=== PATIENT | male | born 1960 | race Caucasian/White ===

== ENCOUNTER 2023-05-29 09:15 | Outpatient (AMB) | payer OTHER, SELFPAY ==
--- NOTE | 2023-05-29 09:58 | AM.OFFWIN_ITS ---
<Statement entered by Xavier Novak MD - 05/30/23 14:35> This document is duplicate Intake Vital Signs 3 05/29/23 09:59 Height 5 ft 10 in Weight 277 lb BMI 39.7 BP 150/60 H Blood Pressure Location Lt brachial Position Sitting Pulse 67 Pulse Source Pulse Oximeter Temp 98.4 F Temp Source Oral Pulse Oximetry (%) 97 Oxygen Delivery Method Room Air Intake Visit Reasons: EP, Blister on great toe Intake Note: Pt is here today c/o Rt grt toe blister and Rt lower leg red x1week Patient Tobacco Use Status: Former Tobacco user Allergies atorvastatin [From LIPITOR] Adverse Reaction (Unknown, Unverified 05/29/23 09:58) MUSCLE ACHES PFSH Social History Patient Tobacco Use Status: Former Tobacco user Physical Exam Vital Signs: Last Vital Signs Temp 98.4 F 05/29/23 09:59 Pulse 67 05/29/23 09:59 BP 150/60 H 05/29/23 09:59 Pulse Ox 97 05/29/23 09:59 Oxygen Delivery Method Room Air 05/29/23 09:59 BMI result Body Mass Index 39.7 Assessment & Plan Assessment & Plan Medications: New doxycycline hyclate 100 mg PO BID 14 tabs 0RF Coding Level of Care Code Est Pt Level 1 (24735)
[2023-05-29 09:59] VITALS: BP 150/60; PULSE 67; TEMP 36.9; O2SAT 97; BMI 39.7
--- NOTE | 2023-05-29 10:20 | MHC.OFFWIV ---
Intake Vital Signs 05/29/23 09:59 Height 5 ft 10 in Weight 277 lb BMI 39.7 BP 150/60 H Blood Pressure Location Lt brachial Position Sitting Pulse 67 Pulse Source Pulse Oximeter Temp 98.4 F Temp Source Oral Pulse Oximetry (%) 97 Oxygen Delivery Method Room Air Intake Visit Reasons: EP, Blister on great toe Patient Tobacco Use Status: Former Tobacco user Allergies atorvastatin [From LIPITOR] Adverse Reaction (Unknown, Unverified 05/29/23 09:58) MUSCLE ACHES HPI HPI Comments History of Present Illness Details This is a 62 year past medical history of insulin-dependent diabetes, atrial fibrillation currently anticoagulated, obstructive sleep apnea, hypertension, hyperlipidemia and peripheral neuropathy presenting from home for evaluation of a blister on his right great toe. Patient states that he works for the [employer] in [place], [place] and has been forced to wear steel-toed boots over the past 10 days. Approximately 8 days ago the patient noticed a blood blister on his RGT and now new redness on his right leg. Patient denies having any fevers, chills, discharge from the lesion or episoes of hyperglycemia. [facility] Social History Patient Tobacco Use Status: Former Tobacco user Review of Systems Const Denies chills, Denies fatigue and Denies fever(s) Skin/Breast Reports system reviewed and no additional complaints, except as documented, Reports non-healing lesions, Reports erythema and Reports wounds Neuro Reports no additional complaints and Reports other (peripheral neuropathy - chronic) Psych Reports no additional complaints Endo Denies fatigue Physical Exam Vital Signs: Last Vital Signs Temp 98.4 F 05/29/23 09:59 Pulse 67 05/29/23 09:59 BP 150/60 H 05/29/23 09:59 Pulse Ox 97 05/29/23 09:59 Oxygen Delivery Method Room Air 05/29/23 09:59 BMI result Body Mass Index 39.7 Patient is afebrile. Const General: cooperative, healthy appearing, comfortable and no acute distress; No ill appearing Nutritional Appearance: overweight Orientation/consciousness: patient oriented x3 Limitations: no limitations Skin Other: there is a 2cm round hypopigmented blister on the lateral RGT with 1cm surrounding erythema that is warm to touch; no evidence of a retained foreign body. Additionally, there is macular erythema measuring 7cm x 9cm that is warm to touch on the distal aspect of the medial RLE. Neuro General: patient oriented x3 Extrem Other: pain to palpation surrounding the aforementioned lesion on the medial RGT; patient ambulating independently Psych Appearance: grossly normal Mental Status: mental status grossly normal Insight: Good insight present (Psych) Judgement: Good judgement present (Psych) Assessment & Plan Assessment & Plan (1) Blister of foot with infection: Code(s): S90.829A - Blister (nonthermal), unspecified foot, initial encounter; L08.9 - Local infection of the skin and subcutaneous tissue, unspecified Plan: Antibiotic therapy will be prescribed and the patient is urged to check his blood sugar at least 3 times daily. The patient states he has follow-up scheduled with his orthopedic surgeon on WednesdayMay 31 for further evaluation of this lesion on his foot. Medications: New doxycycline hyclate 100 mg PO BID 14 tabs 0RF Coding Level of Care Code New Pt Level 4 (01283) Diagnoses Blister of foot with infection S90.829A; L08.9 Time Spent (min) 25
== END 2023-05-29 10:12 | disposition home or self-care (01) ==
PROVIDERS: PCP Internal Medicine; Visit Provider Physician Assistant
DX: S90.829A Blister (nonthermal), unspecified foot, initial encounter (principal); L08.9 Local infection of the skin and subcutaneous tissue, unspecified
CPT/HCPCS: 99051; 99204

== ENCOUNTER 2023-07-05 14:31 | Outpatient (REF) | payer OTHER, SELFPAY ==
--- NOTE | ~2023-07-05 | US_ITS ---
EXAMINATION: US EXTRACRANIAL CAROTID DUPLEX, BILATERAL CLINICAL INFORMATION: Occlusion and stenosis of unspecified carotid artery. Diabetes, tobacco, hypertension, hyperlipidemia. COMPARISON: None available. TECHNIQUE: Real-time ultrasound and Doppler techniques (integrating B-mode 2-D vascular images, Doppler spectral analysis and color-flow Doppler imaging) were utilized to interrogate the extracranial carotid arteries, the vertebral arteries and proximal subclavian arteries bilaterally. The degree of stenosis is determined by criteria similar to NASCET. FINDINGS: Right Side: 1. There is no atherosclerotic plaque seen in the bifurcation/proximal ICA region. 2. The common carotid artery PSV proximally is 75 cm/s and distally 62 cm/s. 3. The proximal internal carotid artery velocities are 67 cm/s systolic and 15 cm/s diastolic. 4. The proximal external carotid artery PSV is 99 cm/s. 5. The vertebral artery shows antegrade flow. 6. The subclavian artery waveforms are normal. Left Side: 1. There is no atherosclerotic plaque seen in the bifurcation/proximal ICA region. 2. The common carotid artery PSV proximally is 98 cm/s and distally 90 cm/s. 3. The proximal internal carotid artery velocities are 65 cm/s systolic and 14 cm/s diastolic. 4. The proximal external carotid artery PSV is 91 cm/s. 5. The vertebral artery shows antegrade flow. 6. The subclavian artery waveforms are normal. US/US carotid duplex BI IMPRESSION: 1. RIGHT: Normal right internal carotid artery without atherosclerotic plaque or hemodynamically significant stenosis. 2. LEFT: Normal left internal carotid artery without atherosclerotic plaque or hemodynamically significant stenosis.
== END 2023-07-05 14:32 | disposition home or self-care (01) ==
LOC: HO.US 14:31
PROVIDERS: PCP Internal Medicine; Visit Provider Psychiatry & Neurology Neurology
DX: I65.29 Occlusion and stenosis of unspecified carotid artery (principal); I10 Essential (primary) hypertension; E78.5 Hyperlipidemia, unspecified; E11.9 Type 2 diabetes mellitus without complications
CPT/HCPCS: 93880

== ENCOUNTER 2023-07-27 08:52 | Outpatient (AMB) | payer OTHER, SELFPAY ==
--- NOTE | 2023-07-27 09:31 | AM.OFFWIN_ITS ---
Intake Vital Signs 07/27/23 09:32 Height 5 ft 10 in Weight 271 lb 4 oz BMI 38.9 BP 140/60 H Blood Pressure Location Rt brachial Position Sitting Pulse 60 Pulse Source Pulse Oximeter Temp 97.4 F Temp Source Temporal Artery Scan Pulse Oximetry (%) 95 Oxygen Delivery Method Room Air Intake Visit Reasons: EP cough upset stomach [id number] Intake Note: Pt is here c/o bad cough, upset stomach, and feeling sick since last week. Pt states he has taken two COVID test and they were negative. Pt is requesting letter for work for 07/26/23 and 07/27/23 pending test results. Patient Tobacco Use Status: Former Tobacco user Allergies atorvastatin [From LIPITOR] Adverse Reaction (Unknown, Unverified 07/27/23 09:31) MUSCLE ACHES Do you need a note to return to daycare/school/sports/work: No HPI EP cough upset stomach [id number] HPI Details This is a 62-year-old male patient who presents today with a 6 day history of cough, wheezing, and GI upset. He states he has had several instances of diarrhea, however no vomiting. Denies any fever or chills. Denies shortness of breath. 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 This exacerbated symptoms. He has been home from work yesterday and today and is starting to feel somewhat improved. COVID test at home have been negative, however he does request some viral testing if possible. Tried some Robitussin at home with moderate benefit. Also has an albuterol inhaler at home which she uses every so often. [facility] Social History Patient Tobacco Use Status: Former Tobacco user Review of Systems Const All systems reviewed & are unremarkable except as noted in HPI and below Physical Exam Vital Signs: Last Vital Signs Temp 97.4 F 07/27/23 09:32 Pulse 60 07/27/23 09:32 BP 140/60 H 07/27/23 09:32 Pulse Ox 95 07/27/23 09:32 Oxygen Delivery Method Room Air 07/27/23 09:32 BMI result Body Mass Index 38.9 Const General: cooperative, comfortable and no acute distress HEENT Head: Yes normal to inspection Ears: hearing grossly normal bilaterally General nose exam: Normal external nose present and Normal nasal mucous membranes and turbinates present Throat: Yes posterior oropharynx normal Resp Effort & Inspection: normal respiratory effort, able to speak in complete sentences and Actively coughing Quality: dry Auscultation: wheezes (otherwise clear) scattered wheezes Cardio Jugular venous distension: no JVD Palpation: normal PMI Rate: regular rate Rhythm: regular rhythm GI Inspection: Yes normal to inspection Palpation (GI): Soft to palpation (nontender) Skin General skin exam: no rashes or lesions noted Extrem General: Yes capillary refill normal and Yes no clubbing, cyanosis or edema Psych Appearance: grossly normal Mental Status: mental status grossly normal Speech and movement: Normal speech and movement present Assessment & Plan Assessment & Plan (1) Upper respiratory infection: Code(s): J06.9 - Acute upper respiratory infection, unspecified Qualifiers: URI type: unspecified viral URI Qualified Code(s): J06.9 - Acute upper respiratory infection, unspecified Plan: Will start patient on a short course of prednisone, and also benzonatate for his cough. COVID/flu/ RSV viral swab obtained. Patient aware he will be notified with results once these are available. He states that GI symptoms are improving, and declines any medication to treat his diarrhea. Advised [id number] Imodium as needed. Work note provided. Advised rest, increase hydration, Tylenol for any ongoing discomforts. if he does not improve with time and treatment, he should return to the clinic for further evaluation. He verbalizes understanding and agrees to plan. Orders: Orders SARS-CoV2/FLU/RSV Today J06.9 - Acute upper respiratory infection, unspecified Medications: New prednisone 20 mg PO BID 3 days 6 tabs 0RF J06.9 - Acute upper respiratory infection, unspecified benzonatate 100 mg PO BID 7 days PRN 14 caps 0RF cough R05.9 - Cough, unspecified Coding Level of Care Code Est Pt Level 3 (33375) Diagnoses Viral upper respiratory tract infection J06.9 URI type: unspecified viral URI
[2023-07-27 09:32] VITALS: BP 140/60; PULSE 60; TEMP 36.3; O2SAT 95; BMI 38.9
== END 2023-07-27 10:18 | disposition home or self-care (01) ==
PROVIDERS: PCP Internal Medicine; Visit Provider Nurse Practitioner Family
DX: J06.9 Acute upper respiratory infection, unspecified (principal)
CPT/HCPCS: 99213

== ENCOUNTER 2023-07-27 09:56 | Outpatient (REF) | payer OTHER, SELFPAY ==
[2023-07-27 14:37] LABS: Influenza A PCR NEGATIVE (Negative); Influenza B PCR NEGATIVE (Negative); Resp Syncy Virus RNA Qual PCR POSITIVE (Negative); SARS COV2 PCR INHOUSE NEGATIVE (Negative)
== END 2023-07-27 09:57 | disposition home or self-care (01) ==
LOC: HO.LAB 09:56
PROVIDERS: Visit Provider Nurse Practitioner Family
DX: Z11.52 Encounter for screening for COVID-19 (principal); J06.9 Acute upper respiratory infection, unspecified
CPT/HCPCS: 0241U

== ENCOUNTER 2024-03-31 09:07 | Outpatient (AMB) | payer OTHER, SELFPAY ==
--- NOTE | 2024-03-31 09:30 | AM.OFFWIN_ITS ---
Intake Vital Signs 03/31/24 09:33 Height 5 ft 10 in Weight 268 lb BMI 38.4 BP 120/78 Blood Pressure Location Lt brachial Position Sitting Pulse 53 Pulse Source Pulse Oximeter Pulse Oximetry (%) 98 Oxygen Delivery Method Room Air Intake Visit Reasons: EP stomach problems Intake Note: Patient here for diarrhea that has been present for some time now. Patient Tobacco Use Status: Former Tobacco user Allergies atorvastatin [From LIPITOR] Adverse Reaction (Unknown, Unverified 03/31/24 09:3 4) MUSCLE ACHES Do you need a note to return to daycare/school/sports/work: Yes HPI HPI Comments History of Present Illness Details Patient is a 63-year-old male complaining watery diarrhea on and off for the last month. He said it started in the middle of February when he had COVID. Then his symptoms resolved but came back about 2 weeks ago, then went away 5 days ago and then came back yesterday. He states he had terrible watery diarrhea and did not get to the restroom in time on a couple of occasions. He denies any blood or black in his diarrhea. He denies any recent antibiotic use. He states no one at home has these symptoms. He denies any fevers, vomiting or nausea. He states he gets regular colonoscopies, every 5 years and denies a history of diverticulitis. He tells me he does not have any true pain in his stomach, it is more uncomfortableness and is constantly gurgling. Patient states he is able to eat and drink normally. COUNTS INCLUDE 234 BEDS AT THE [facility] Social History Patient Tobacco Use Status: Former Tobacco user Review of Systems Const All systems reviewed & are unremarkable except as noted in HPI and below Physical Exam Vital Signs: Last Vital Signs Pulse 53 03/31/24 09:33 BP 120/78 03/31/24 09:33 Pulse Ox 98 03/31/24 09:33 Oxygen Delivery Method Room Air 03/31/24 09:33 BMI result Body Mass Index 38.4 Const General: cooperative, healthy appearing, comfortable, no acute distress and well developed Orientation/consciousness: patient oriented x3 Limitations: no limitations HEENT Head: Yes normal to inspection Ears: hearing grossly normal bilaterally General nose exam: Normal external nose present Face and sinus: Yes normal facial exam Eyes General: appearance normal, both eyes and all related structures Neck Neck: Yes normal visual inspection and Yes full ROM Resp Effort & Inspection: normal respiratory effort and able to speak in complete sentences Auscultation: clear to auscultation bilaterally Cardio Rate: regular rate Rhythm: regular rhythm Heart sounds: normal S1 and S2 GI Inspection: Yes normal to inspection Palpation (GI): Soft to palpation and nontender Auscultation: Hyperactive bowel sounds present Skin General skin exam: no rashes or lesions noted Neuro General: patient oriented x3 Extrem General: Yes normal to inspection Assessment & Plan Assessment & Plan (1) Diarrhea: Code(s): R19.7 - Diarrhea, unspecified Qualifiers: Diarrhea type: unspecified type Qualified Code(s): R19.7 - Diarrhea, unspecified Plan: Vital signs are stable and patient is well-appearing, we will get GI PCR panel as he has been symptomatic for approximately 2 weeks. Recommended staying well hydrated, BRAT diet, gave red flag warning signs and when to seek emergent medical care. Plan See above Orders: Orders GI Panel Today R19.7 - Diarrhea, unspecified Coding Level of Care Code New Pt Level 4 (66228) Diagnoses Diarrhea, unspecified type R19.7 Diarrhea type: unspecified type
[2024-03-31 09:33] VITALS: BP 120/78; PULSE 53; O2SAT 98; BMI 38.4
== END 2024-03-31 10:26 | disposition home or self-care (01) ==
PROVIDERS: PCP Internal Medicine; Visit Provider Physician Assistant
DX: R19.7 Diarrhea, unspecified (principal)
CPT/HCPCS: 99204

== ENCOUNTER 2024-03-31 10:30 | Outpatient (REF) | payer OTHER, SELFPAY ==
[2024-03-31 15:07] LABS: Adenovirus F 40/41 Not Detected (Not Detect.); Astrovirus Not Detected (Not Detect.); Campylobacter Not Detected (Not Detect.); Cryptosporidium Not Detected (Not Detect.); Cyclospora cayetanensis Not Detected (Not Detect.); E. coli EAEC Not Detected (Not Detect.); E. coli EPEC Not Detected (Not Detect.); E. coli ETEC Not Detected (Not Detect.); E. coli STEC Not Detected (Not Detect.); Entamoeba histolytica Not Detected (Not Detect.); Giardia lamblia Not Detected (Not Detect.); Norovirus GI/GII Not Detected (Not Detect.); Plesiomonas shigelloides Not Detected (Not Detect.); Rotavirus A Not Detected (Not Detect.); Salmonella Not Detected (Not Detect.); Sapovirus Not Detected (Not Detect.); Shigella sp./EIEC Not Detected (Not Detect.); Vibrio Not Detected (Not Detect.); Vibrio Cholerae Not Detected (Not Detect.); Yersinia enterocolitica Not Detected (Not Detect.)
== END 2024-03-31 10:31 | disposition home or self-care (01) ==
LOC: HO.HMGCLNP 10:30
PROVIDERS: PCP Internal Medicine; Visit Provider Physician Assistant
DX: R19.7 Diarrhea, unspecified (principal)
CPT/HCPCS: 87507

== ENCOUNTER 2025-04-23 11:42 | Outpatient (AMB) | payer OTHER, SELFPAY ==
--- NOTE | 2025-04-23 12:21 | A.OFFVIS_ITS ---
Intake Visit Reasons: 1 yr F/U Allergies atorvastatin (From LIPITOR) Adverse Reaction (Unknown, Unverified 03/31/24 09:34) MUSCLE ACHES Medication List - Last Reconciled 04/23/25 by Cee Trujillo MD albuterol sulfate 90 mcg/actuation 2 puffs inhalation Q6H PRN amlodipine 10 mg PO DAILY apixaban (Eliquis) 5 mg PO BID carbidopa-levodopa 25-100 mg 1 tab PO TID PRN cholecalciferol (vitamin D3) 50 mcg PO DAILY CPAP (CPAP Machine/Device) As directed ferrous sulfate (Feosol) 325 mg PO DAILY flecainide 300 mg PO DAILY PRN glipizide 5 mg PO BID insulin glargine (Lantus U-100 Insulin) 100 units subcut BID labetalol 200 mg PO BID meclizine 25 mg PO BID PRN nebivolol 40 mg PO DAILY olmesartan 20 mg PO DAILY pantoprazole 40 mg PO DAILY semaglutide (Rybelsus) 14 mg PO DAILY simvastatin 20 mg PO DAILY HPI Comments Details: 64 years old man with diabetes, atrial fibrillation, diabetic neuropathy, and mild right hand tremor. He is presenting with a progression of tremor and evaluation of new symptoms including stiffness, swallowing difficulties, and balance issues. He reports an exacerbation of a resting tremor with possible psychogenic influence. Stiffness on the right side has increased in severity, interfering with daily tasks and mobility. Additionally, the patient mentions difficulties in swallowing pills and incidents of losing balance, including a recent fall without major injuries. The patient's diabetically induced peripheral neuropathy manifests as a deformity in his right toes, reported to be consistent and problematic over time. He recently underwent a heart valve replacement, resulting in an adjustment of his hypertension medication, but has not introduced new medications aside from this change. Previous use of Carbidopa-Levodopa was noted for tremor management, which the patient has not resumed. [facility] Medical History (Updated 04/23/25 @ 12:33 by Cee Trujillo MD) Diabetic neuropathy Cerebral microvascular disease Carotid stenosis Social History Patient Tobacco Use Status: Former Tobacco user Review of Systems Const Details: - Neurological: Reports tremor, right-sided stiffness, and balance issues. Denies other neurological symptoms. - Endocrine: Reports diabetes mellitus type 2, with ongoing management. - Musculoskeletal: Reports deformity of right toes due to neuropathy. - Swallowing: Reports difficulty swallowing pills. - Cardiac: Status post heart valve replacement with changes in blood pressure medication. Assessment & Plan Assessment & Plan (1) Diabetic neuropathy: Comment: EMG/NCS LEs at off in Apr 2024: Mod severe SM axonal PN Code(s): E11.40 - Type 2 diabetes mellitus with diabetic neuropathy, unspecified Category: Medical Qualifiers: Diabetes mellitus type: type 2 Diabetes mellitus complication detail: diabetic polyneuropathy Qualified Code(s): E11.42 - Type 2 diabetes mellitus with diabetic polyneuropathy (2) Cerebral microvascular disease: Comment: MRI brain WO at [facility] in Jun 2023: Mod WM lesions, one larger in right semiovale region and resulting in encephalomalacia, somewhat suggestive of demyelinating vs vascular disease NICS at [facility] in Jun 2023: WNL. Code(s): I67.89 - Other cerebrovascular disease Category: Medical (3) Tremor: Code(s): R25.1 - Tremor, unspecified Category: Medical Plan Impression: a: Right and resting tremor, atypical b: Cerebral microvascular disease c: Diabetic neuropathy. Rec: Try carbidopa/levodopa 25/100 tid again Medications: Changed From carbidopa-levodopa 25-100 mg 1 tab PO TID PRN To carbidopa-levodopa 25-100 mg 1 tab PO TID 270 tabs 0RF Coding Level of Care Code Est Pt Level 4 (95867) Diagnoses Diabetic polyneuropathy associated with type 2 diabetes mellitus E11.42 Diabetes mellitus type: type 2 Diabetes mellitus complication detail: diabetic polyneuropathy Cerebral microvascular disease I67.89 Tremor R25.1
--- OUTSIDE RECORDS SUMMARY | 2025-04-23 14:17 | XMS_ITS | Encounter Summary ---
Author Organization [facility] Address [address] [place] [address] Care Team Providers Care Driver Wheelchair Name Role Phone Esvin Washington MD Primary Care Provider [phone] Reason for Visit * Reason Comments home health Encounter Details Date Type Department Care Team ([facility] Contact Info) Description 12/21/2024 Billing Patient Not Present Adult Medicine [address] [phone] Esvin Washington MD [address] [place] [phone] Social History Tobacco Use Types Packs/Day Years Used Date Smoking Tobacco: Former Cigarettes Smokeless Tobacco: Never Alcohol Use Standard Drinks/Week Comments Not Currently 0 (1 standard drink = 0.6 oz pur e alcohol) Housing Instability Answer Date Recorde d Are you worried that in the next 2 months you may not have stable housing? No 09/19/2024 Food Access & Nutrition Answer Date Rec orded Do you have access to a vari ety of food including fruits and vegetables? Yes 09/19/2024 Access to Healthcare Answer Date Record ed Within the last 3 months, cristian martin many times did you visit the emergency department for your medical care? 0 09/19/2024 Health Literacy Answer Date Recorded How often do you need to hav e someone help you when you read instructions, pamphlets, or other written material from your doctor or pharmacy? Never 09/19/2024 Caregiver: How often do you need to have someone help you when you read instructions, pamphlets, or other written material from your doctor or pharmacy? Not on file 09/19/2024 Financial Risk Answer Date Recorded How hard is it for you to pa y for the very basics like food, housing, medical care, and air conditioning / heating? Not very hard 09/19/2024 Transportation Answer Date Recorded Has the lack of transportati on kept you from meetings, work, or from getting things needed for daily living? No Has the lack of transportati on kept you from medical appointments or from getting medications? No 09/19/2024 Social Isolation Answer Date Recorded How often do you feel lonely or isolated from th ose around you? Rarely 09/19/2024 Food Risk Answer Date Recorded Within the past 12 months we worried whether our food would run out before we got money to buy more. Never true 09/19/2024 Within the past 12 months th e food we bought just didn't last and we didn't have money to get more. Never true 09/19/2024 Dependent Care Answer Date Recorded Do you need help finding or paying for care for your loved ones. For example, director child or elderly care for an older adult? No 09/19/2024 Education Answer Date Recorded Do you think completing more education or training, like finishing a GED, going to college, or learning a trade, would be helpful for you? No 09/19/2024 Employment and Income Answer Date Recor ded During the last four weeks, have you been actively looking for work? No 09/19/2024 Living Situation Answer Date Recorded What is your living situation? Unrecognized valu e 09/19/2024 Interpersonal Safety Answer Date Record ed Physical Abuse Unrecognized value 11/27/2024 Verbal Abuse Unrecognized value 11/27/2024 Sex and Gender Information Value Date Recorded Sex Assigned at Male 10/19/2024 6:10 PM EDT Legal Sex Male 3:57 PM EST Gender Identity Male 10/19/2024 6:10 PM EDT Sexual Orientation Straight 10/19/2024 6: 10 PM EDT documented as of this encounter Plan of Treatment Upcoming Encounters Date Type Department Care Team (Late st Contact Info) Description 05/10/2025 8:00 AM EDT Office Visit [facility] [address] [place], [place] [phone] Sophie Blanchard PA [address] [place], [place] 06/27/2025 1:30 PM EST Ancillary Procedure [facility] Cardiology [facility] - [facility] [address] [facility] [address] [place] [address] 07/30/2025 9:30 AM EST Ancillary Procedure [facility] [address] [address] [place] [address] 10/08/2025 11:15 AM EDT Office Visit Pulmonology - [place] [address] [phone] Do Matias MD [address] [address] 10/19/2025 2:30 PM EDT Office Visit [facility] - [address] [phone] Esvin Washington MD [address] [place] [address] 10/31/2025 4:00 PM EDT Office Visit Nephrology - [address] [phone] Matthew Cardenas MD [address] [phone] documented as of this encounter Visit Diagnoses Not on filedocumented in this encounter Additional Health Concerns Assessment Noted Time PHQ-9 Depression Total Score: 13 025 7:21 PM EST documented as of this encounter Care Teams Driver Wheelchair Relationship Specialty Start Date End Date Esvin Washington MD [address] [place] [address] PCP - General Internal Medicine 06/12/24 documented as of this encounter
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
--- OUTSIDE RECORDS SUMMARY | 2025-04-23 14:17 | XMS_ITS | Clinical Summary ---
Author Organization [address] [place] [address] Address [address] [place] [address] Phone Care Team Providers Care Flasher Adjuster Name Role Phone Esvin Washington MD Primary Care Provider [phone] Allergies Active Allergy Reactions Criticality Noted Date Comments Atorvastatin 01/01/2016 Joint pain Kiwi Anaphylaxis High 11/21/2024 Medications simvastatin (ZOCOR) 20 mg tablet Take 1 tablet (20 mg total) by mouth at bedtime. 08/05/19 24 Active blood sugar diagnostic (FreeStyle Lite Strips) test strip Test blood sugar 3 times daily 08/05/19 24 Active pen needle, diabetic 31 gauge x 5/16 needle Use with novolog flex pen 04/08/20 23 Active cholecalciferol (VITAMIN D-3) 50 mcg (2,000 unit) tablet Take 1 tablet (2,000 Units total) by mouth 1 (one) time each day. 12/18/19 23 Active insulin syringes, disposable, 1 mL syringe Use twice daily with insulin 08/17/19 23 Active FREESTYLE LANCETS MISC Test blood sugar 3 times daily 08/17/19 23 Active UNABLE TO FIND Inhale into the lungs at bedtime. [employer]-pressure 8 03/30/20 14 Active ferrous sulfate 325 mg (65 mg elemental iron) tablet Take 1 tablet (325 mg total) by mouth 1 (one) time each day. 12/03/19 21 Active empagliflozin (JARDIANCE) 25 mg tablet Sig - Route: Take 25 mg by mouth daily. Active apixaban (Eliquis) 5 mg tablet Take 1 tablet (5 mg total) by mouth 2 (two) times a day. 180 tablet 1 06/06/20 24 Active insulin glargine (Lantus U-100 Insulin) 100 unit/mL injection Use twice daily: 100 units in AM and 80 units in PM 10/04/19 25 Active amLODIPine (NORVASC) 10 mg tablet Take 1 tablet (10 mg total) by mouth 1 (one) time each day. 90 tablet 1 10/19/19 25 Active pantoprazole (PROTONIX) 40 mg EC tablet TAKE 1 TABLET BY MOUTH EVERY DAY 90 tablet 1 10/20/19 25 Active aspirin 81 mg EC tablet Take 1 tablet (81 mg total) by mouth 1 (one) time each day. 12/06/19 25 2025 Active oxyCODONE (ROXICODONE) 5 mg immediate release tablet Take 1 tablet (5 mg total) by mouth every 4 (four) hours if needed (pain). Max Daily Amount: 30 mg 45 tablet 12/05/19 Active Additional Information Patient not taking.Reported on 04/10/2025 metoprolol tartrate (LOPRESSOR) 25 mg tabletIndicatio ns:Paroxysmal atrial fibrillation (CMS/HCC V24, CMS/HCC V28) Take 1 tablet (25 mg total) by mouth 2 (two) times a day. 180 tablet 3 12/15/19 25 Active semaglutide (Ozempic) 0.25 mg or 0.5 mg(2 mg/1.5 mL) injection pen Inject 0.25 mg under the skin every 7 (seven) days. Active FreeStyle Jazmyne 3 Plus Sensor device 1 EA. 04/06/20 25 Active ipratropium-alb uteroL (Combivent Respimat) 20-100 mcg/actuation inhalerIndicati ons:Chronic obstructive pulmonary disease, unspecified COPD type (CMS/HCC V24, CMS/HCC V28) Inhale 1 puff by mouth 4 (four) times a day. 3 each 3 04/09/20 25 2025 Active ipratropium-alb uteroL (Combivent Respimat) 20-100 mcg/actuation inhalerIndicati ons:Chronic obstructive pulmonary disease, unspecified COPD type (CMS/HCC V24, CMS/HCC V28) Inhale 1 puff by mouth 4 (four) times a day. 3 each 3 04/09/20 25 2025 Active ipratropium-alb uteroL (Combivent Respimat) 20-100 mcg/actuation inhaler Inhale 1 puff by mouth 4 (four) times a day. 3 each 3 08/31/19 25 2024 Discontinued(R eorder) furosemide (Lasix) 20 mg tablet Take one tab twice daily for 7 days, then decrease to one tab once daily thereafter. 90 tablet 1 12/05/19 25 2024 Discontinued potassium chloride (KLOR-CON M10) 10 mEq CR tablet Take one tab twice daily for 7 days, then decrease to one tab once daily thereafter. Tablet may be swallowed whole (do not crush/chew/suc k on) OR broken in half and each half swallowed separately OR dissolved (whole tablet) in ~4 ounces of water (allow ~2 minutes to dissolve, stir well and administer immediately). 90 each 1 12/05/19 25 2024 Discontinued Active Problems Problem Noted Date Diagnosed Date Achilles bursitis 04/09/2025 Aortic valve stenosis 04/09/2025 Chronic obstructive pulmonar y disease ([facility] V24, [facility] V28) 04/09/2025 Hypertension 04/09/2025 Nephrolithiasis 04/09/2025 Pain in limb 04/09/2025 Parkinson's disease ([facility] V24, [facility] V28) 0 04/09/2025 Bursitis 04/09/2025 Primary pulmonary hypertension ([facility] V24, [facility] V28) 04/09/2025 Type 2 diabetes mellitus wit hout complications ([facility] V24, [facility] V28) 04/09/2025 LVH (left ventricular hypertrophy) 12/14/2024 Assessment & Plan (03/30/2025 2:50 PM EDT): Moderate concentric LVH on echocardiogram from October 2024. PYP study is pending to r/o cardiac amyloidosis. Assessment & Plan (12/14/2024 2:40 PM EDT): Moderate concentric LVH on echocardiogram from October 2024. PYP study is pending to r/o cardiac amyloidosis. Secondary hypercoagulable state (CMS/HCC V24) Acute on chronic diastolic ( congestive) heart failure (CMS/HCC V24, CMS/HCC V28) 11/27/2024 Hypophosphatemia 11/27/2024 Substernal chest pain 10/19/2024 S/P AVR (aortic valve replacement) 03/15/2023 Overview (12/14/2024): >>OVERVIEW FOR AORTIC STENOSIS WRITTEN ON 04/13/2024 10:59 AM BY TERESO ROA Moderate aortic stenosis by echocardiography. LVH at 15 mm for septal thickness. Last Assessment & Plan: Moderate aortic stenosis. Continue to follow clinically. I discussed the potential that he might need a TAVR or valve replacement in the future. He does have aortic enlargement which we will need to follow as well. No indication for repair at this time. Assessment & Plan (03/30/2025 2:55 PM EDT): On 11/27/24 he underwent a surgical aortic valve replacement with a #25 Inspiris Thompson pericardial valve and left atrial appendage clip with Dr. Givens. Postoperative JUAN DIEGO showed a normally functioning, well-seated bioprosthetic aortic valve with a low normal ejection fraction of 50-55% and no thrombus in the left atrial appendage. He has been participating in cardiac rehab, doing well and has 4 weeks left. Valve appears to be well-functioning and he appears euvolemic by physical exam. He can discontinue furosemide and potassium at this time. He will monitor for signs of fluid retention and update a BMP next week. Echocardiogram ordered to reassess cardiac function and structure. Continue antibiotic prophylaxis prior to dental procedures. Assessment & Plan (12/14/2024 2:34 PM EDT): On 11/27/24 he underwent a surgical aortic valve replacement with a #25 Inspiris Thompson pericardial valve and left atrial appendage clip with Dr. Givens. Postoperative JUAN DIEGO showed a normally functioning, well-seated bioprosthetic aortic valve with a low normal ejection fraction of 50-55% and no thrombus in the left atrial appendage. We will send a referral for cardiac rehab. He will require antibiotic prophylaxis prior to dental procedures. Assessment & Plan (12/14/2024 2:24 PM EDT): >>ASSESSMENT AND PLAN FOR AORTIC STENOSIS WRITTEN ON 11/01/2024 2:27 PM BY BUSHRA AGUILERA NP Patient has a history of aortic valve stenosis which has progressed from moderate to severe over the last 5 months, with a peak gradient of 66 mmHg, a mean gradient of 41 mmHg and mild regurgitation. He has become symptomatic. We will proceed with a left heart cath to further evaluate the aortic valve. He will require pre-hydration given his chronic kidney disease. Risks and benefits of cath discussed with patient including but not limited to [place], stroke, , pain, bleeding, kidney dysfunction, and infection with scheduled or urgent CABG. The patient understands and wishes to proceed with cardiac cath. All questions answered. Hyperlipidemia 09/20/2020 Overview (04/13/2024): Last Assessment & Plan: LDL somewhat above target, but did not tolerate atorvastatin in the past, again discussed dietary modifications and increased exercise as a means of mitigating his risk. CKD (chronic kidney disease) stage 3, GFR 30-59 ml/min ([facility] V24, [facility] V28) 03/24/2016 CTS (carpal tunnel syndrome) 03/24/2016 Overview (04/13/2024): CTR- bilateral. DM (diabetes mellitus), type 2 with peripheral vascular complications ([facility] V24, [facility] V28) 03/24/2016 ED (erectile dysfunction) 03/24/2016 Iron deficiency anemia 03/24/2016 Peripheral neuropathy 03/24/2016 Overview (04/13/2024): LUE. Obstructive sleep apnea 11/14/2013 Overview (04/13/2024): CPAP. Severe obesity (BMI 35.0-39. 9) with comorbidity ([facility] V24, [facility] V28) 11/14/2013 BPH (benign prostatic hyperplasia) 12/01/2011 Paroxysmal atrial fibrillation ([facility] V24, [facility] V28) 10/28/2011 Overview (04/13/2024): S/P ablation 09/03. Anticoagulated with Pradaxa Last Assessment & Plan: Recurrent atrial fibrillation lasting several hours without clear provocation. I discussed the options visit with include continued efforts at rate control using nebivolol, adding an antiarrhythmic drug such as flecainide, or repeat catheter ablation. He wants to use flecainide on an as-needed basis and if his A-fib episodes are more than a few a year then we will proceed to repeat ablation. He understands a small risk of proarrhythmia with flecainide. I will have him take 300 mg once as needed for an episode. He did tolerate this well in the past. We will avoid excessive alcohol. Assessment & Plan (03/30/2025 2:49 PM EDT): Patient has a history of paroxysmal atrial fibrillation status pulmonary vein isolation in 2015 with redo radiofrequency ablation in February 2024. He is on Eliquis for stroke risk reduction for [id number] score of 2. Continue to monitor for abnormal bruising or bleeding. Heart rate is well-controlled in the office today at 87 bpm. Continue metoprolol as prescribed. Assessment & Plan (12/14/2024 2:31 PM EDT): Patient has a history of paroxysmal atrial fibrillation status pulmonary vein isolation in 2015 with redo radiofrequency ablation in February 2024. He was in Afib post-operatively and at discharge. He thinks he converted back to sinus rhythm last week. EKG done in the office today confirms he is in sinus rhythm with a well-controlled rate of 65 bpm. He is on Eliquis for stroke risk reduction for [id number] score of 2. He has had some daytime fatigue since switching from Bystolic to metoprolol. I will reduce the metoprolol to 25 mg BID. Continue Eliquis as prescribed. Assessment & Plan (11/01/2024 2:23 PM EDT): Patient has a history of paroxysmal atrial fibrillation status pulmonary vein isolation in 2015 with redo radiofrequency ablation in February 2024. EKG from recent hospitalization 10/19/24 reviewed showing sinus rhythm with a rate of 53 bpm. He is on Eliquis for stroke risk reduction for [id number] score of 2. No change to current medical therapy, continue on Eliquis and Bystolic as prescribed. DM (diabetes mellitus), type 2 with neurological complications ([facility] V24, [facility] V28) 06/18/2011 Microalbuminuria 06/18/2011 Type 2 diabetes mellitus wit h diabetic cataract ([facility] V24, [facility] V28) 06/18/2011 Overview (04/13/2024): Bilateral. Tubular adenoma of colon 06/28/2006 Overview (04/13/2024): Diminutive tubular adenomas x2 at colonoscopy 10/11/14. DM (diabetes mellitus), type 2 with renal complications ([facility] V24, [facility] V28) 03/12/2006 Essential hypertension, benign 03/12/2006 Overview (04/13/2024): Last Assessment & Plan: Inadequately controlled systolic hypertension. Continue with valsartan, amlodipine and nebivolol. I encouraged a low-sodium diet and continued efforts at weight loss. I will ask Dr. Cardenas to consider additional antihypertensive agents. Based on his renal dysfunction the options may be somewhat limited. Assessment & Plan (03/30/2025 2:48 PM EDT): Blood pressure is under reasonable control in the office today at 138/80. Blood pressure readings from cardiac rehab under reasonable control as well. I asked him to continue to monitor his blood pressure at home with a goal less than 130/80. No change to current medical therapy, continue amlodipine and metoprolol as prescribed. Assessment & Plan (12/14/2024 2:34 PM EDT): His blood pressure is elevated in the office today at 146/82, however home blood pressure readings are much better controlled generally running 110-130/80s. I have asked him to continue to monitor his blood pressure at home with a goal of less than 130/80. He will contact the office if he finds his blood pressure readings at home or not well-controlled. No change to current medical therapy, continue amlodipine and metoprolol as prescribed. Assessment & Plan (11/01/2024 2:27 PM EDT): Blood pressure is robust in the office today at 146/60. Given his severe aortic stenosis and occasional episodes of lightheadedness/near syncope I will make no changes to current medical therapy. Continue with amlodipine, valsartan and Bystolic as prescribed. Continue close follow-up with nephrology. Esophageal reflux 03/12/2006 Resolved Problems Problem Noted Date Diagnosed Date Resolved Date Persistent atrial fibrillati on (CMS/[facility] V24, CMS/HCC V28) 11/14/2024 03/30/2025 Encounters Date Type Department Care Team Description 04/16/2025 Results Follow-Up Adult Medicine [address] [phone] Esvin Washington MD 04/13/2025 Telephone Adult Medicine [address] [phone] Esvin Washington MD 04/11/2025 Telephone [facility] [address] [facility] [address] [place] [address] Kelley Loza RN 04/10/2025 3:30 PM EDT Office Visit Adult [address] [phone] Esvin Washington MD Type 2 diabetes mellitus with other kidney complication, unspecified whether rat exterminator insulin use (CMS/HCC V24, CMS/HCC V28) (Primary Dx); Microalbuminuria; Essential hypertension, benign; Pure hypercholesterolemia; Encounter for long-term (current) use of medications; Other cardiomyopathy (CMS/HCC V24, CMS/HCC V28); Stage 3b chronic kidney disease (CMS/HCC V24, CMS/HCC V28); Paroxysmal atrial fibrillation (CMS/HCC V24, CMS/HCC V28); S/P AVR (aortic valve replacement); Nonrheumatic aortic valve stenosis; Primary hypertension; Parkinson's disease, unspecified whether dyskinesia present, unspecified whether manifestations fluctuate ([facility] V24, [facility] V28) 04/09/2025 3:30 PM EDT Office Visit Pulmonology - [place] [address] [facility] [address] [place] [address] Do Matias MD Mixed sleep apnea (Primary Dx); Chronic obstructive pulmonary disease, unspecified COPD type ([facility] V24, [facility] V28); Ex-smoker; Pleural effusion 03/30/2025 1:40 PM EDT Office Visit [facility] [address] [facility] [address] [place] [address] Bushra Aguilera NP S/P AVR (aortic valve replacement) (Primary Dx); Essential hypertension, benign; Paroxysmal atrial fibrillation ([facility] V24, [facility] V28); LVH (left ventricular hypertrophy) 03/07/[address] [facility] [address] [facility] [address] [place] [address] Juwan Hill MD 01/22/2025 Billing Patient Not Present Adult Medicine [address] [phone] Esvin Washington MD from Last 3 Months Immunizations Immunization Administration Dates Next Due H1N1 Inj Preservative Free 06/28/2009 Influenza Quadravalent, MDCK , 0.5ml, with preservative (Flucelvax) 6mo and older 05/10/2017 Influenza trivalent, with pr eservative (Fluzone; Afluria) 6mo and older 07/02/2016,07/06/2014,04/24/2013,07/25,05/15/2011,03/26/2010,05/02/2009 ,04/11/2007 Pneumococcal polysaccharide 23 valent (Pneumovax 23) 2yo and older 02/25/2022 Td Tetanus diptheria (Tdvax) 7yo and older 09/01/2017 Surgical History Surgery Date Site/Laterality Comments CARPAL TUNNEL RELEASE 1990 PROCEDURE: MN NEUROPLASTY &/TRANSPOS MEDIAN NRV CARPAL TUNNE; COMMENT: bilateral CTR OTHER SURGICAL HISTORY 1999 PROCEDURE: MN REPAIR CHOANAL ATRESIA INTRANASAL; COMMENT: deviated septum repair COLONOSCOPY 2005 PROCEDURE: HISTORICAL COLONOSCOPY; COMMENT: negative COLONOSCOPY 10/11/2014 PROCEDURE: HISTORICAL COLONOSCOPY; COMMENT: small adenomas x 2; repeat in 5 yrs under propofol. done at [facility]. UPPER GASTROINTESTINAL ENDOSCOPY 10/11/2014 PROCEDURE: MN UPPER GI ENDOSCOPY PERFORMED; COMMENT: gastritis; biopsies negative for H. pylori; no Wood's COLONOSCOPY 08/27/2020 PROCEDURE: HISTORICAL COLONOSCOPY; COMMENT: no polyps, repeat in 5 years. ABLATION CARDIAC CARDIAC CATHETERIZATION ABLATION A-FIB OTHER SURGICAL HISTORY Aortic Valve Replacement Medical History Medical History Date Comments Pure hypercholesterolemia DX:Pur e hypercholesterolemia Hemorrhage of gastrointestin al tract, unspecified 06/28/2006 DX:Hemorrhage of gastrointes tinal tract, unspecified; COMMENT: Small-volume rectal bleeding, chronic, as well as positive FOBT. Negative colonoscopy 06.28.06. Special screening for malign ant neoplasms, colon 06/28/2006 DX:Special screening for mal ignant neoplasms, colon; COMMENT: Negative colonoscopy 06/28/2006, no colon cancer screening needed for 10 years. Type II or unspecified type diabetes mellitus without mention of complication, not stated as uncontrolled DX:Type II or unspecified ty pe diabetes mellitus without mention of complication, not stated as uncontrolled Esophageal reflux DX:Esophageal reflux Essential hypertension, benign D X:Essential hypertension, benign DM (diabetes mellitus), type 2 with renal complications ([facility] V24, [facility] V28) 03/12/2006 DX:DM (diabetes mellitus), t ype 2 with renal complications (HCC) CKD (chronic kidney disease) stage 3, GFR 30-59 ml/min ([facility] V24, [facility] V28) 03/24/2016 DX:CKD (chronic kidney disea se) stage 3, GFR 30-59 ml/min ([facility]) Paroxysmal atrial fibrillati on ([facility] V24, [facility] V28) 10/28/2011 DX:Paroxysmal atrial fibril lation (HCC) Obstructive sleep apnea 11/14/2013 DX:Obstr uctive sleep apnea; COMMENT: CPAP. Type 2 diabetes mellitus wit h diabetic cataract ([facility] V24, [facility] V28) 06/18/2011 DX:Type 2 diabetes mellitus with diabetic cataract (HCC); COMMENT: Bilateral nuclear sclerosis. Peripheral neuropathy 03/24/2016 DX:Periphe ral neuropathy; COMMENT: LUE. Iron deficiency anemia 03/24/2016 DX:Iron d eficiency anemia CTS (carpal tunnel syndrome) 03/24/2016 DX: CTS (carpal tunnel syndrome); COMMENT: CTR- bilateral. Tubular adenoma of colon 06/28/2006 DX:Tubu lar adenoma of colon; COMMENT: Small-volume rectal bleeding, chronic, as well as positive FOBT. Negative colonoscopy 06.28.06. Diminutive tubular adenomas x2 at colonoscopy 10/11/14. IMO update COPD (chronic obstructive pu lmonary disease) ([facility] V24, [facility] V28) Heart murmur Heart valve disease Arrhythmia Family History Medical History Relation Name Comments Heart attack Brother 2 Arrhythmia Daughter Cancer Father Dementia Father Hypertension Father Stomach cancer Father Cataracts Mother Diabetes Mother Glaucoma Mother Heart attack Mother Hypertension Mother Stomach cancer Paternal Grandmother Heart attack Sister 1 Blindness Neg Hx Macular degeneration Neg Hx Strabismus Neg Hx Relation Name Status Comments Brother 2 Alive Daughter Alive Father Mother Paternal Grandmother Sister 1 Social History Tobacco Use Types Packs/Day Years Used Date Smoking Tobacco: Former Cigarettes Smokeless Tobacco: Never Tobacco Cessation:Counseling Given: Not Answered Alcohol Use Standard Drinks/Week Comments Not Currently [...] ed Within the last 3 months, ho veronica many times did you visit the emergency [...] your loved ones. For example, director child development center or elderly care for an older adult? [...] Orientation Straight 10/19/2024 6: 10 PM EDT Obstetrics History Last Filed Vital Signs Vital Sign Reading Time Taken Comments Blood Pressure 138/76 04/10/2025 3:19 PM EDT provider to recheck bp Pulse 76 04/10/2025 3:19 PM EDT Temperature 36.6 C (97.8 F) 04/10/2025 3:19 PM EDT Respiratory Rate 16 04/10/2025 3:19 PM EDT Oxygen Saturation 97% 04/10/2025 3:1 9 PM EDT Inhaled Oxygen Concentration - - Weight 110 kg (243 lb) 04/10/2025 3:19 PM EDT Height 177.8 cm (5' 10 ) 04/10/2025 3:1 9 PM EDT Body Mass Index 34.87 04/10/2025 3:19 PM EDT Plan of Treatment Upcoming Encounters Date Type Department Care Team (Late st Contact Info) Description 05/10/2025 8:00 AM EDT Office Visit Endocrinology - [address] [phone] Sophie Blanchard PA [address] [place], [place] 06/27/2025 1:30 PM EST Ancillary Procedure [facility] [address] [phone] 07/30/2025 9:30 AM EST Ancillary Procedure [facility] [place] [address] [phone] 10/08/2025 11:15 AM EDT Office Visit Pulmonology - [place] [address] [phone] Do Matias MD [address] [address] 10/19/2025 2:30 PM EDT Office Visit Adult Medicine [facility] - [address] [phone] Esvin Washington MD [address] [place] [address] 10/31/2025 4:00 PM EDT Office Visit Nephrology - [address] [phone] Matthew Cardenas MD [address] [phone] Health Maintenance Due Date Last Done Comments Diabetes: Annual Foot Exam 1972 Zoster Vaccines (1 of 2) 1981 COVID-19 Vaccine (2 - Sully risk series) 11/21/2020 10/24/2020 HIV Screening 06/27/2022 RSV Immunization Adult Patients (1 - Risk 60-74 years 1-dose series) 2022 Pneumococcal Vaccine: 50+ Years (2 of 2 - PCV) 02/25/2023 02/25/2022 Diabetes: Annual Retina Eye Exam 05/26/2024 05/26/2023 Influenza Vaccine (#1) 2025 7, 07/02/2016, 07/06/2014, Additional history exists Social Influencers of Health Screening 09/19/2025 09/19/2024 Diabetes: Blood Sugar Control Test (HGBA1C) 10/08/2025 04/10/2025, 11/21/2024, 09/29/2024, Additional history exists Diabetes: Annual Urine Albumin-Creatinine Ratio (uACR) 04/10/2026 04/10/2025, 02/14/2024 Diabetes: Annual GFR (Glomerular Filtration Rate) 04/10/2026 04/10/2025, 12/04/2024, 12/03/2024, Additional history exists Hypertension/CHF/CAD Annual BMP Blood Test 04/10/2026 04/10/2025, 12/04/2024, 12/03/2024, Additional history exists Colorectal Cancer Screening: Colonoscopy 08/27/2027 08/27/2020 DTaP,Tdap,and Td Vaccines (2 - Td or Tdap) 09/01/2027 09/01/2017 Cholesterol Screening (Lipid Panel) 04/10/2030 04/10/2025, 11/21/2024, 10/20/2024, Additional history exists Hepatitis C Screening Completed 06/29/2018 Depression Screening Completed 09/19/2024 HIB Vaccines Aged Out No longer eligi ble based on patient's age to complete this topic HPV Vaccines Aged Out No longer eligi ble based on patient's age to complete this topic Hepatitis A Vaccines Aged Out No long er eligible based on patient's age to complete this topic Hepatitis B Vaccines Aged Out No long er eligible based on patient's age to complete this topic IPV Vaccines Aged Out No longer eligi ble based on patient's age to complete this topic MMR Vaccines Aged Out No longer eligi ble based on patient's age to complete this topic Meningococcal ACWY Vaccine Aged Out N o longer eligible based on patient's age to complete this topic Meningococcal B Vaccine Aged Out No l onger eligible based on patient's age to complete this topic RSV Immunization Patients Under 20 months Aged Out No longer eligible based on patient's age to complete this topic Varicella Vaccines Aged Out No longer eligible based on patient's age to complete this topic Medical Devices Implanted Type Area Merchandise Handler Device Identifier Shelf Expiration Date Model / Serial / Lot Valve Aortic Inspiris 25 25mm - [id number] - [id number] Implanted:Qt y: 1 on 11/27/2024 by Jeffery Givens MD at [facility] Heart Valve N/A: Heart [employer] DEMARCO 07/17/2029 [id number] / [id number] / NA Hemostat Absorb Surgicel 2x14in - Sna - [id number] Implanted:Qt y: 1 on 11/27/2024 by Jeffery Givens MD at [facility] Hemostasis N/A: Heart [employer] 01/15/2029 [id number] / NA / [id number] Plate X - Sna - [id number] Implanted:Qt y: 2 on 11/27/2024 by Jeffery Givens MD at [facility] Internal and External Fixation N/A: Heart SERA CRANIOMAXILLOFACIAL [id number] / NA / NA Plate Manubrium - Sna - [id number] Implanted:Qt y: 1 on 11/27/2024 by Jeffery Givens MD at [facility] Internal and External Fixation N/A: Heart SERA CRANIOMAXILLOFACIAL [id number] / NA / NA Screw Sd Locking 2.3x14mm - Sna - [id number] Implanted:Qt y: 22 on 11/27/2024 by Jeffery Givens MD at [facility] Internal and External Fixation N/A: Heart SERA CRANIOMAXILLOFACIAL [id number] / NA / NA Procedures Procedure Name Priority Date/Time Associated Diagnosis Comments [place] IMMUNOFIXATION ELECTROPHORESIS SERUM Routine 04/10/2025 4:13 PM EDT Other cardiomyopathy (CMS/HCC V24, CMS/HCC V28) PATHOLOGIST REVIEW IMMUNOFIXATION, URINE RANDOM Routine 04/10/2025 4:13 PM EDT Other cardiomyopathy (CMS/HCC V24, CMS/HCC V28) IMMUNOGLOBULINS IGG, IGA, IGM Routine 04/10/2025 4:13 PM EDT Other cardiomyopathy (CMS/HCC V24, CMS/HCC V28) IMMUNOFIXATION ELECTROPHORESIS Routine 04/10/2025 4:13 PM EDT Other cardiomyopathy (CMS/HCC V24, CMS/HCC V28) KAPPA-LAMBDA QUANTITATIVE FREE LIGHT CHAINS Routine 04/10/2025 4:13 PM EDT Other cardiomyopathy (CMS/HCC V24, CMS/HCC V28) HEMOGLOBIN A1C Routine 04/10/2025 4:13 PM EDT Type 2 diabetes mellitus with other kidney complication, unspecified whether halfway insulin use (CMS/HCC V24, CMS/HCC V28) COMPREHENSIVE METABOLIC PANEL Routine 04/10/2025 4:13 PM EDT Type 2 diabetes mellitus with other kidney complication, unspecified whether rat exterminator insulin use (CMS/HCC V24, CMS/HCC V28) Essential hypertension, benign Encounter for long-term (current) use of medications LIPID PANEL WITH REFLEX TO DIRECT LDL Routine 04/10/2025 4:13 PM EDT Pure hypercholesterolemia IMMUNOFIXATION, URINE Routine 04/10/2025 4:13 PM EDT Other cardiomyopathy (CMS/HCC V24, CMS/HCC V28) IMMUNOFIXATION ELECTROPHORESIS Routine 04/10/2025 4:13 PM EDT Other cardiomyopathy (CMS/HCC V24, CMS/HCC V28) MICROALBUMIN CREATININE URINE RATIO Routine 04/10/2025 4:13 PM EDT Type 2 diabetes mellitus with other kidney complication, unspecified whether rat exterminator insulin use (CMS/HCC V24, CMS/HCC V28) DIABETES EYE EXAM Routine 05/26/2023 COLONOSCOPY Routine 08/27/2020 HEPATITIS C SCREENING Routine 06/29/2018 from Last 3 Months or Most Recently Relevant to Health Maintenance Results * Pathologist review immunofixation, urine random (04/10/2025 4:13 PM EDT) Pathologist Interpretation Reviewed by Brandy Sethi MD 04/12/2025 3:07 PM EDT [facility] Urine Urine specimen obtained by clean catch procedure / Unknown Non-blood Collection / Unknown 04/10/2025 4:13 PM EDT 04/10/2025 4:13 PM EDT Bushra Aguilera [facility] URINE ORDERABLES Final Resu lt Performing Organization Address City/[facility]/ZIP Co de Phone Number [facility] [address] [place] [address], [place] [phone] * Pathologist Review Immunofixation (04/10/2025 4:13 PM EDT) Pathologist Interpretation Reviewed by Brandy Sethi MD 04/12/2025 3:05 PM EDT [facility] Blood Venous blood specimen / Unknown Venipuncture / Unknown 04/10/2025 4:13 PM EDT 04/10/2025 4:13 PM EDT Bushra Aguilera [facility] BLOOD ORDERABLES Final Resu lt [facility] [address] [place] [address], [place] [phone] * (ABNORMAL) Lipid panel with reflex to direct LDL (04/10/2025 4:13 PM EDT) Pathologist [facility] Cholesterol 173 0 - 200 mg/dL LAB CHEMISTRY METHOD 04/10/2025 6:52 PM EDT [facility] Triglycerides 140 0 - 150 mg/dL LAB CHEMISTRY METHOD 04/10/2025 6:52 PM EDT [facility] HDL 41 >=40 mg/dL LAB CHEMISTRY METHOD 04/10/2025 6:52 PM EDT [facility] LDL Calculated 104(H) 0 - 100 mg/dL LAB CHEMISTRY METHOD 04/10/2025 6:52 PM EDT [facility] Comment:Estimated LDL Calcul ated using equation: Total cholesterol - HDL cholesterol - (Triglycerides/5) VLDL Cholesterol Froy 28 mg/dL LAB CHEMISTRY METHOD 04/10/2025 6:52 PM EDT [facility] Non HDL Chol. (LDL+VLDL) 132 <145 mg/dL LAB CHEMISTRY METHOD 04/10/2025 6:52 PM EDT [facility] Chol/HDL Ratio 4.2 0.0 - 4.4 LAB CHEMISTRY METHOD 04/10/2025 6:52 PM EDT [facility] Blood Venous blood specimen / Unknown Venipuncture / Unknown 04/10/2025 4:13 PM EDT 04/10/2025 4:13 PM EDT us Esvin Washington MD LAB BLOOD ORDERABLES Final Resu lt [facility] [address] [place] [address], * Immunofixation, urine (04/10/2025 4:13 PM EDT) [facility] Immunofixation Electrophoresis, Urine No monoclonal immunoglobulins detected. LAB CHEMISTRY METHOD 04/12/2025 3:07 PM EDT [facility] Urine Urine specimen obtained by clean catch procedure / Unknown Non-blood Collection / Unknown 04/10/2025 4:13 PM EDT 04/10/2025 4:13 PM EDT Bushra Aguilera [facility] URINE ORDERABLES Final Resu lt Performing Organization Address City/[facility]/ZIP Co de Phone Number [facility] [address] [place] [address], [place] [phone] * (ABNORMAL) Proberta-lambda free light chains, quantitative (04/10/2025 4:13 PM EDT) Proberta Free Light Chain 3.41(H) 0.33 - 1.94 mg/dL 04/13/2025 12:22 PM EDT [facility] Lambda Free Light Chain 2.44 0.57 - 2.63 mg/dL 04/13/2025 12:22 PM EDT [facility] Proberta/Lambda FLC Ratio 1.40 0.26 - 1.65 04/13/2025 12:22 PM EDT [facility] Comment: Test performed at [facility], [address], [place] [address] Beverly Rose MD, PhD - Mogul Operator Blood Venous blood specimen / Unknown Venipuncture / Unknown 04/10/2025 4:13 PM EDT 04/10/2025 4:13 PM EDT Bushra Aguilera NP LAB BLOOD ORDERABLES Final Resu lt [facility] [address] [place] [address] * (ABNORMAL) Microalbumin creatinine urine ratio (04/10/2025 4:13 PM EDT) Creatinine, Urine 106.0 mg/dL LAB CHEMISTRY METHOD 04/10/2025 7:42 PM EDT [facility] Microalb, Ur 774.0(H) 0.0 - 29.0 mg/L LAB CHEMISTRY METHOD 04/10/2025 7:42 PM EDT [facility] Comment:Results verified by repeat testing Microalb/Crea t Ratio 730(H) <30 mg/g creat LAB CHEMISTRY METHOD 04/10/2025 7:42 PM EDT [facility] Urine Urine specimen obtained by clean catch procedure / Unknown Non-blood Collection / Unknown 04/10/2025 4:13 PM EDT 04/10/2025 4:13 PM EDT us Esvin Washington MD LAB URINE ORDERABLES Final Resu lt [facility] [address] [place] [address], [place] [phone] * Immunofixation electrophoresis serum (04/10/2025 4:13 PM EDT) Pathologist [facility] Immunofixation Result, Serum No monoclonal immunoglobulins detected. LAB CHEMISTRY METHOD 04/12/2025 3:05 PM EDT [facility] Blood Venous blood specimen / Unknown Venipuncture / Unknown 04/10/2025 4:13 PM EDT 04/10/2025 4:13 PM EDT us Bushra Aguilera NP LAB BLOOD ORDERABLES Final Resu lt Performing Organization Address City/[facility]/ZIP Co de Phone Number [facility] [address] [place] [address], [place] [phone] * Immunoglobulins IgG, IgA, IgM (04/10/2025 4:13 PM EDT) Pathologist [facility] Total IgG 1,390 549 - 1,584 mg/dL LAB CHEMISTRY METHOD 04/10/2025 6:52 PM EDT [facility] IgA 191 61 - 348 mg/dL LAB CHEMISTRY METHOD 04/10/2025 6:52 PM EDT [facility] IgM 55 23 - 259 mg/dL LAB CHEMISTRY METHOD 04/10/2025 6:52 PM EDT [facility] Blood Venous blood specimen / Unknown Venipuncture / Unknown 04/10/2025 4:13 PM EDT 04/10/2025 4:13 PM EDT Bushra Aguilera NP LAB BLOOD ORDERABLES Final Resu lt Performing Organization Address [facility]/ZIP Co de Phone Number [facility] [address] [place] [address], [place] [phone] * (ABNORMAL) Hemoglobin A1c (04/10/2025 4:13 PM EDT) Pathologist [facility] Hemoglobin A1C 7.8(H) <6.5 % LAB CHEMISTRY METHOD 04/10/2025 9:21 PM EDT [facility] Mean Bld Glu Estim. 177 mg/dL LAB CHEMISTRY METHOD 04/10/2025 9:21 PM EDT [facility] Blood Venous blood specimen / Unknown Venipuncture / Unknown 04/10/2025 4:13 PM EDT 04/10/2025 4:13 PM EDT Esvin Washington MD LAB BLOOD ORDERABLES Final Resu lt Performing Organization Address [facility]/ZIP Co de Phone Number [facility] [address] [place] [address], * (ABNORMAL) Comprehensive metabolic panel (04/10/2025 4:13 PM EDT) Sodium 136 133 - 145 mmol/L LAB CHEMISTRY METHOD 04/10/2025 6:52 PM EDT [facility] Potassium 3.7 3.5 - 5.5 mmol/L LAB CHEMISTRY METHOD 04/10/2025 6:52 PM EDT [facility] Chloride 107 96 - 110 mmol/L LAB CHEMISTRY METHOD 04/10/2025 6:52 PM EDT [facility] CO2 23 21 - 32 mmol/L LAB CHEMISTRY METHOD 04/10/2025 6:52 PM [facility] Anion Gap 6 3 - 11 LAB CHEMISTRY METHOD 04/10/2025 6:52 PM [facility] Glucose 97 70 - 100 mg/dL LAB CHEMISTRY METHOD 04/10/2025 6:52 PM [facility] BUN 19 5 - 25 mg/dL LAB CHEMISTRY METHOD 04/10/2025 6:52 PM [facility] Creatinine 1.64(H) 0.70 - 1.30 mg/dL LAB CHEMISTRY METHOD 04/10/2025 6:52 PM [facility] eGFR 47(L) >=60 mL/min/1. 73m2 LAB CHEMISTRY METHOD 04/10/2025 6:52 PM [facility] Comment:Calculation based on the Chronic Kidney Disease Epidemiology Collaboration (CKD-EPI) equation refit without adjustment for race. BUN/Creatinine Ratio 11.6 LAB CHEMISTRY METHOD 04/10/2025 6:52 PM [facility] Calcium 9.5 8.5 - 10.5 mg/dL LAB CHEMISTRY METHOD 04/10/2025 6:52 PM [facility] AST (SGOT) 26 10 - 42 unit/L LAB CHEMISTRY METHOD 04/10/2025 6:52 PM [facility] ALT (SGPT) 25 10 - 60 unit/L LAB CHEMISTRY METHOD 04/10/2025 6:52 PM [facility] Alkaline Phosphatase 98 42 - 121 unit/L LAB CHEMISTRY METHOD 04/10/2025 6:52 PM [facility] Total Protein 7.8 6.0 - 8.0 g/dL LAB CHEMISTRY METHOD 04/10/2025 6:52 PM [facility] Albumin 4.3 3.2 - 5.0 g/dL LAB CHEMISTRY METHOD 04/10/2025 6:52 PM EDT [facility] Total Bilirubin 0.6 0.0 - 1.4 mg/dL LAB CHEMISTRY METHOD 04/10/2025 6:52 PM EDT [facility] Blood Venous blood specimen / Unknown Venipuncture / Unknown 04/10/2025 4:13 PM EDT 04/10/2025 4:13 PM EDT Esvin Washington MD LAB BLOOD ORDERABLES Final Resu lt [facility] [address] [place] [address], * Diabetes Eye Exam (05/26/2023) [facility] Diabetes: Annual Retina Eye Exam Abstracted Historical Provider HEALTH MAINTENANCE Final Result * Colonoscopy (08/27/2020) [facility] Colonoscopy No Interpretation , Abstracted Anatomical Region Laterality Modality Other Historical Provider HEALTH MAINTENANCE Final Result * Hepatitis C Screening (06/29/2018) [facility] Hepatitis C Screening Abstracted Historical Provider HEALTH MAINTENANCE Final Result from Last 3 Months or Most Recently Relevant to Health Maintenance Insurance [facility] [employer] Member Subscriber Plan / Payer (Ef fective 2023-Present) Name:SHERLEY SAHNI Relation to Subscriber:Self Name:Sherley Sahni Jr. Payer ID:[id number] Group ID:Not on file Type:Not on file Address: [facility] [id number] Advance Directives * Full Code - Default (Latest Code Status on File) Date Activated Date Inactivated Comments 12/04/2024 3:08 PM 12/04/2024 10:03 PM This is ord er is used when code status has not been discussed with the patient, or code status is otherwise unknown/unconfirmed To update the patient's code status, place a code status order. Do not modify or discontinue any currently active code status orders. * Full Code - Confirmed Date Activated Date Inactivated Comments 11/27/2024 12:14 PM 12/04/2024 3:08 PM This code s tatus was ascertained in the following way: Code status discussion: discussion with patient To update the patient's code status, place a code status order. Do not modify or discontinue any currently active code status orders. * Full Code - Default Date Activated Date Inactivated Comments 11/27/2024 5:33 AM 11/27/2024 12:14 PM This is ord er is used when code status has not been discussed with the patient, or code status is otherwise unknown/unconfirmed To update the patient's code status, place a code status order. Do not modify or discontinue any currently active code status orders. * Full Code - Default Date Activated Date Inactivated Comments 10/19/2024 7:41 PM 10/20/2024 7:22 PM This is order is used when code status has not been discussed with the patient, or code status is otherwise unknown/unconfirmed To update the patient's code status, place a code status order. Do not modify or discontinue any currently active code status orders. Care Teams Flasher Adjuster Relationship Specialty Start Date End Date Esvin Washington MD [address] [place] [address] PCP - General Internal Medicine 06/12/24
--- OUTSIDE RECORDS SUMMARY | 2025-04-23 14:17 | XMS_ITS | Patient Health Record ---
Author Organization [facility] claudine OsorioMark Address [address] [facility] [place] [address] Care Team Providers Care Metal Numerical Control Programmer Name Role Phone Ranjit Washington MD Primary Care Provider Turner Tsang Unavailable [phone] Reason For Referral No Information Medications Medication SIG (Take, Route, Frequency, Duration) Notes Start Date End Date Status Pantoprazole Sodium 40 MG 1 tablet Orall y Once a day; Duration: 30 day(s) Active Lantus 100 UNIT/ML 0.02 ml Subcutaneous Once a day; Duration: 30 day(s) Active Glyburide-Metformin 2.5-500 MG 1 tablet with a meal Orally Once a day; Duration: 30 day(s) Active Simvastatin 20 MG 1 tablet in the even ing Orally Once a day; Duration: 30 day(s) Active Physical Therapy . . . 2-3x/week; Durat ion: 3-4 weeks Active Valsartan-hydroCHLOROthia zide 160-12.5 MG 1 tablet Orally Once a day; Duration: 30 day(s) Active amLODIPine Besylate 10 MG 1 tablet Orall y Once a day; Duration: 30 day(s) Active Atenolol 100 MG 1 tablet Orally Once a day; Duration: 30 day(s) Active Aspirin 81 MG 1 tablet Orally Once a day; Duration: 30 day(s) Active Problems Problem Type SNOMED Code ICD Code Onset Dates Problem Status W/U Status Risk Notes Problem Bursitis (90830155) Bursitis (727.3) Active confirmed Problem Achilles bursitis (703764197) Achilles Tendonitis Bursitis (726.71) Active confirmed Problem Myositis (15511685) Myositis (729.1) Active confirmed Problem Pain in limb (12651404) Pain in Limb (729.5) Active confirmed Problem Plantar fasciitis (470847251) Plantar Fasciitis (728.71) Active confirmed Plan Of Treatment Pending Test Test Name Order Date X ray : Foot, right 2V 07/20/2012 Insurance Providers Payer Name Payer Address Payer Phone Subscriber Number Group Number Insured Name Patient Relationship to Insured Coverage Start Date Coverage End Date [facility] [employer] [facility] [employer] [address] [facility] [place] [address] [phone] [id number] Roman Chan Self - patient is the insured Medical (General) History Medical History History ICD Code broken bones CAD diabetes headaches/migraines heart disease high blood pressure reflux stomach ulcer Surgical History Surgery Date(Month/Year) carpal tunnel surgery both hands
--- OUTSIDE RECORDS SUMMARY | 2025-04-23 14:17 | XMS_ITS | Encounter Summary ---
Author Organization [facility] Address [address] [place] [address] Care Team Providers Care Manager Safe Name Role Phone Esvin Washington MD Primary Care Provider [phone] Encounter Details Date Type Department Care Team (Late st Contact Info) Description 04/16/2025 Results Follow-Up Adult Medicine [address] [phone] Esvin Washington MD [address] [place], [place] Social History Tobacco Use Types Packs/Day Years [...] care for your loved ones. For example, childcare aide or elderly care for an older adult? [...] Upcoming Encounters Date Type Department Care Team ([facility] st Contact Info) Description 05/10/2025 8:00 AM EDT Office Visit [address] [phone] Sophie Blanchard PA [address] [place] [phone] 06/27/2025 1:30 PM EST Ancillary Procedure [facility] Cardiology [facility] [address] [facility] [address] [place] [address] 07/30/2025 9:30 AM EST Ancillary Procedure [facility] [address] [facility] [address] [place] [address] 10/08/2025 11:15 AM EDT Office Visit Pulmonology - [place] [address] [phone] Do Matias MD [address] [address] 10/19/2025 2:30 PM EDT Office Visit Adult Medicine [place] - [address] [phone] Esvin Washington MD [address] [place] [address] 10/31/2025 4:00 PM EDT Office Visit Nephrology - [address] [phone] Matthew Cardenas MD [address] [phone] documented as of this encounter Visit Diagnoses Not on filedocumented in this encounter Additional Health Concerns Assessment Noted Time PHQ-9 Depression Total Score: 13 025 7:21 PM EST documented as of this encounter Care Teams Manager Safe Relationship Specialty Start Date End Date Esvin Washington MD [address] [place] [address] PCP - General Internal Medicine 06/12/24 documented as of this encounter
--- OUTSIDE RECORDS SUMMARY | 2025-04-23 14:17 | XMS_ITS ---
Author Name [facility] Organization Unknown Results Test Name/Text Value Interpretation Date Range Source Glucose Bld-mCnc 119.0 mg/dL 12/04/2024 70 - 199 [facility] Glucose Bld-mCnc 124.0 mg/dL 12/04/2024 70 - 199 [facility] Glucose Bld-mCnc 105.0 mg/dL 12/04/2024 70 - 199 [facility] Magnesium SerPl-mCnc 2.2 mg/dL 12/04/2024 1.7 - 2.8 [facility] Glucose SerPl-mCnc 101.0 mg/dL 12/04/2024 70 - 199 [facility] Chloride SerPl-sCnc 100.0 mmol/L 12/04/2024 98 - 107 [facility] Potassium SerPl-sCnc 3.3 mmol/L Below low normal 12/04/2024 3.5 - 5.1 [facility] BUN SerPl-mCnc 34.0 mg/dL Above high normal 12/04/2024 9 - 2 0 [facility] Sodium SerPl-sCnc 136.0 mmol/L 12/04/2024 135 - 14 5 [facility] CO2 SerPl-sCnc 27.0 mmol/L 12/04/2024 24 - 32 [facility] eGFRcr SerPlBld CKD-EPI 2020 49.0 mL/min/1.73m2 Below low normal 12/04/2024 - [facility] BUN/Creat SerPl 21.3 Above high normal 12/04/2024 12 - 20 [facility] Calcium SerPl-mCnc 8.7 mg/dL 12/04/2024 8.4 - 10.2 [facility] Creat SerPl-mCnc 1.6 mg/dL Above high normal 12/04/2024 0.7 - 1.3 [facility] Anion Gap SerPl Calc-sCnc 9.0 12/04/2024 5 - 14 [facility] MCH RBC Qn Auto 29.0 pcg 12/04/2024 25 - 33 [facility] WBC # Bld Auto 13.3 K/mcL Above high normal 12/04/2024 4 - [address] 0.5 [facility] PMV Bld Auto 7.8 FL 12/04/2024 7.4 - 11.4 [facility] RBC # Bld Auto 3.27 M/mcL Below low normal 12/04/2024 4.7 - 6 [facility] Hgb Bld-mCnc 9.5 g/dL Below low normal 12/04/2024 13.5 - 18 [facility] Platelet # Bld Auto 241.0 K/mcL 12/04/2024 150 - 450 [facility] RDW RBC Auto 14.7 % 12/04/2024 12.1 - 17.7 [facility] Hct VFr Bld Auto 28.8 % Below low normal 12/04/2024 40 - 54 [facility] MCHC RBC Auto-EntMCnc 33.0 g/dL 12/04/2024 32 - 36 [facility] RBC Auto 88.1 FL 12/04/2024 78 - 100 [facility] Glucose Bld-mCnc 161.0 mg/dL 12/04/2024 70 - 199 [facility] Glucose Bld-mCnc 160.0 mg/dL 12/03/2024 70 - 199 [facility] Glucose Bld-mCnc 187.0 mg/dL 12/03/2024 70 - 199 [facility] Glucose Bld-mCnc 151.0 mg/dL 12/03/2024 70 - 199 [facility] Magnesium SerPl-mCnc 2.2 mg/dL 12/03/2024 1.7 - 2.8 [facility] BUN/Creat SerPl 24.0 Above high normal 12/03/2024 12 - 20 [facility] Chloride SerPl-sCnc 100.0 mmol/L 12/03/2024 98 - 107 [facility] Potassium SerPl-sCnc 3.6 mmol/L 12/03/2024 3.5 - 5.1 [facility] Sodium SerPl-sCnc 134.0 mmol/L Below low normal 12/03/2024 1 35 - 145 [facility] CO2 SerPl-sCnc 24.0 mmol/L 12/03/2024 24 - 32 [facility] Glucose SerPl-mCnc 133.0 mg/dL 12/03/2024 70 - 199 [facility] BUN SerPl-mCnc 36.0 mg/dL Above high normal 12/03/2024 9 - 2 0 [facility] eGFRcr SerPlBld CKD-EPI 2020 53.0 mL/min/1.73m2 Below low normal 12/03/2024 - [facility] Creat SerPl-mCnc 1.5 mg/dL Above high normal 12/03/2024 0.7 - 1.3 [facility] Calcium SerPl-mCnc 8.2 mg/dL Below low normal 12/03/2024 8.4 - 10.2 [facility] Anion Gap SerPl Calc-sCnc 10.0 12/03/2024 5 - 14 [facility] Glucose Bld-mCnc 182.0 mg/dL 12/03/2024 70 - 199 [facility] Glucose Bld-mCnc 231.0 mg/dL Above high normal 12/02/2024 70 - 199 [facility] Glucose Bld-mCnc 249.0 mg/dL Above high normal 12/02/2024 70 - 199 [facility] Rpt comment Notified Nurse 12/02/2024 [facility] Glucose Bld-mCnc 217.0 mg/dL Above high normal 12/02/2024 70 - 199 [facility] Magnesium SerPl-mCnc 2.4 mg/dL 12/02/2024 1.7 - 2.8 [facility] Sodium SerPl-sCnc 134.0 mmol/L Below low normal 12/02/2024 1 35 - 145 [facility] Creat SerPl-mCnc 1.4 mg/dL Above high normal 12/02/2024 0.7 - 1.3 [facility] BUN/Creat SerPl 28.6 Above high normal 12/02/2024 12 - 20 [facility] eGFRcr SerPlBld CKD-EPI 2020 57.0 mL/min/1.73m2 Below low normal 12/02/2024 - [facility] Potassium SerPl-sCnc 4.1 mmol/L 12/02/2024 3.5 - 5.1 [facility] BUN SerPl-mCnc 40.0 mg/dL Above high normal 12/02/2024 9 - 2 0 [facility] Calcium SerPl-mCnc 8.2 mg/dL Below low normal 12/02/2024 8.4 - 10.2 [facility] Anion Gap SerPl Calc-sCnc 10.0 12/02/2024 5 - 14 [facility] CO2 SerPl-sCnc 23.0 mmol/L Below low normal 12/02/2024 24 - 32 [facility] Chloride SerPl-sCnc 101.0 mmol/L 12/02/2024 98 - 107 [facility] Glucose SerPl-mCnc 199.0 mg/dL Above high normal 12/02/2024 70 - 99 [facility] Platelet # Bld Auto 136.0 K/mcL Below low normal 12/02/2024 150 - 450 [facility] Hct VFr Bld Auto 26.8 % Below low normal 12/02/2024 40 - 54 [facility] PMV Bld Auto 8.4 FL 12/02/2024 7.4 - 11.4 [facility] MCH RBC Qn Auto 29.4 pcg 12/02/2024 25 - 33 [facility] WBC # Bld Auto 12.3 K/mcL Above high normal 12/02/2024 4 - 1 0.5 [facility] MCHC RBC Auto-EntMCnc 33.9 g/dL 12/02/2024 32 - 36 [facility] RBC # Bld Auto 3.08 M/mcL Below low normal 12/02/2024 4.7 - 6 [facility] RDW RBC Auto 14.9 % 12/02/2024 12.1 - 17.7 [facility] Hgb Bld-mCnc 9.1 g/dL Below low normal 12/02/2024 13.5 - 18 [facility] RBC Auto 86.9 FL 12/02/2024 78 - 100 [facility] Glucose Bld-mCnc 255.0 mg/dL Above high normal 12/02/2024 70 - 199 [facility] Glucose Bld-mCnc 193.0 mg/dL 12/01/2024 70 - 199 [facility] Glucose Bld-mCnc 252.0 mg/dL Above high normal 12/01/2024 70 - 199 [facility] Glucose Bld-mCnc 261.0 mg/dL Above high normal 12/01/2024 70 - 199 [facility] Magnesium SerPl-mCnc 2.4 mg/dL 12/01/2024 1.7 - 2.8 [facility] Creat SerPl-mCnc 1.6 mg/dL Above high normal 12/01/2024 0.7 - 1.3 [facility] Glucose SerPl-mCnc 276.0 mg/dL Above high normal 12/01/2024 70 - 199 [facility] eGFRcr SerPlBld CKD-EPI 2020 49.0 mL/min/1.73m2 Below low normal 12/01/2024 - [facility] Calcium SerPl-mCnc 8.4 mg/dL 12/01/2024 8.4 - 10.2 [facility] Sodium SerPl-sCnc 130.0 mmol/L Below low normal 12/01/2024 1 35 - 145 [facility] Chloride SerPl-sCnc 101.0 mmol/L 12/01/2024 98 - 107 [facility] Potassium SerPl-sCnc 4.5 mmol/L 12/01/2024 3.5 - 5.1 [facility] CO2 SerPl-sCnc 21.0 mmol/L Below low normal 12/01/2024 24 - 32 [facility] Anion Gap SerPl Calc-sCnc 8.0 12/01/2024 5 - 14 [facility] BUN SerPl-mCnc 43.0 mg/dL Above high normal 12/01/2024 9 - 2 0 [facility] BUN/Creat SerPl 26.9 Above high normal 12/01/2024 12 - 20 [facility] MCHC RBC Auto-EntMCnc 33.2 g/dL 12/01/2024 32 - 36 [facility] RBC # Bld Auto 3.01 M/mcL Below low normal 12/01/2024 4.7 - 6 [facility] RDW RBC Auto 15.0 % 12/01/2024 12.1 - 17.7 [facility] Platelet # Bld Auto 107.0 K/mcL Below low normal 12/01/2024 150 - 450 [facility] MCH RBC Qn Auto 29.0 pcg 12/01/2024 25 - 33 [facility] PMV Bld Auto 8.6 FL 12/01/2024 7.4 - 11.4 [facility] Hgb Bld-mCnc 8.7 g/dL Below low normal 12/01/2024 13.5 - 18 [facility] WBC # Bld Auto 12.5 K/mcL Above high normal 12/01/2024 4 - 1 0.5 [facility] Hct VFr Bld Auto 26.3 % Below low normal 12/01/2024 40 - 54 [facility] RBC Auto 87.4 FL 12/01/2024 78 - 100 [facility] Glucose Bld-mCnc 225.0 mg/dL Above high normal 12/01/2024 70 - 199 [facility] Glucose Bld-mCnc 260.0 mg/dL Above high normal 11/30/2024 70 - 199 [facility] Glucose Bld-mCnc 260.0 mg/dL Above high normal 11/30/2024 70 - 199 [facility] ALP SerPl-cCnc 33.0 unit/L Below low normal 11/30/2024 34 - 104 [facility] Prot SerPl-mCnc 6.0 g/dL Below low normal 11/30/2024 6.4 - 8.5 [facility] Albumin/Glob SerPl 1.7 11/30/2024 [facility] Bilirub SerPl-mCnc 0.7 mg/dL 11/30/2024 0.3 - 1 [facility] Albumin SerPl-mCnc 3.8 g/dL 11/30/2024 3.5 - 5 [facility] AST SerPl-cCnc 14.0 unit/L 11/30/2024 5 - 40 [facility] ALT SerPl-cCnc 5.0 unit/L Below low normal 11/30/2024 7 - 52 [facility] Globulin Ser Calc-mCnc 2.2 g/dL Below low normal 11/30/2024 2.3 - 3.5 [facility] Bilirub Direct SerPl-mCnc 0.2 mg/dL 11/30/2024 0 - 0.2 [facility] INR PPP 1.2 Above high normal 11/30/2024 0.8 - 1.1 C [facility] PT Bld 14.0 sec Above high normal 11/30/2024 10.5 - 13.3 [facility] Glucose Bld-mCnc 206.0 mg/dL Above high normal 11/30/2024 70 - 199 [facility] Glucose Bld-mCnc 272.0 mg/dL Above high normal 11/30/2024 70 - 199 [facility] Magnesium SerPl-mCnc 2.3 mg/dL 11/30/2024 1.7 - 2.8 [facility] PMV Bld Auto 8.4 FL 11/30/2024 7.4 - 11.4 [facility] RDW RBC Auto 15.0 % 11/30/2024 12.1 - 17.7 [facility] RBC Auto 86.6 FL 11/30/2024 78 - 100 [facility] MCH RBC Qn Auto 29.2 pcg 11/30/2024 25 - 33 [facility] Hgb Bld-mCnc 9.4 g/dL Below low normal 11/30/2024 13.5 - 18 [facility] MCHC RBC Auto-EntMCnc 33.7 g/dL 11/30/2024 32 - 36 [facility] Platelet # Bld Auto 90.0 K/mcL Below low normal 11/30/2024 150 - 450 [facility] Hct VFr Bld Auto 27.9 % Below low normal 11/30/2024 40 - 54 [facility] WBC # Bld Auto 17.5 K/mcL Above high normal 11/30/2024 4 - 1 0.5 [facility] RBC # Bld Auto 3.22 M/mcL Below low normal 11/30/2024 4.7 - 6 [facility] BUN SerPl-mCnc 36.0 mg/dL Above high normal 11/30/2024 9 - 2 0 [facility] Calcium SerPl-mCnc 8.5 mg/dL 11/30/2024 8.4 - 10.2 [facility] Potassium SerPl-sCnc 4.5 mmol/L 11/30/2024 3.5 - 5.1 [facility] CO2 SerPl-sCnc 21.0 mmol/L Below low normal 11/30/2024 24 - 32 [facility] Sodium SerPl-sCnc 133.0 mmol/L Below low normal 11/30/2024 1 35 - 145 [facility] Anion Gap SerPl Calc-sCnc 9.0 11/30/2024 5 - 14 [facility] eGFRcr SerPlBld CKD-EPI 2020 49.0 mL/min/1.73m2 Below low normal 11/30/2024 - [facility] BUN/Creat SerPl 22.5 Above high normal 11/30/2024 12 - 20 [facility] Chloride SerPl-sCnc 103.0 mmol/L 11/30/2024 98 - 107 [facility] Glucose SerPl-mCnc 261.0 mg/dL Above high normal 11/30/2024 70 - 99 [facility] Creat SerPl-mCnc 1.6 mg/dL Above high normal 11/30/2024 0.7 - 1.3 [facility] Glucose Bld-mCnc 253.0 mg/dL Above high normal 11/30/2024 70 - 199 [facility] Glucose Bld-mCnc 271.0 mg/dL Above high normal 11/30/2024 70 - 199 [facility] Glucose Bld-mCnc 256.0 mg/dL Above high normal 11/29/2024 70 - 199 [facility] Glucose Bld-mCnc 165.0 mg/dL 11/29/2024 70 - 199 [facility] Glucose Bld-mCnc 164.0 mg/dL 11/29/2024 70 - 199 [facility] Glucose Bld-mCnc 132.0 mg/dL 11/29/2024 70 - 199 [facility] BUN SerPl-mCnc 31.0 mg/dL Above high normal 11/29/2024 9 - 2 0 [facility] CO2 SerPl-sCnc 21.0 mmol/L Below low normal 11/29/2024 24 - 32 [facility] Creat SerPl-mCnc 1.7 mg/dL Above high normal 11/29/2024 0.7 - 1.3 [facility] BUN/Creat SerPl 18.2 11/29/2024 12 - 20 [facility] Anion Gap SerPl Calc-sCnc 9.0 11/29/2024 5 - 14 [facility] Glucose SerPl-mCnc 188.0 mg/dL 11/29/2024 70 - 199 [facility] Chloride SerPl-sCnc 106.0 mmol/L 11/29/2024 98 - 107 [facility] Sodium SerPl-sCnc 136.0 mmol/L 11/29/2024 135 - 14 5 [facility] eGFRcr SerPlBld CKD-EPI 2020 45.0 mL/min/1.73m2 Below low normal 11/29/2024 - [facility] Calcium SerPl-mCnc 8.0 mg/dL Below low normal 11/29/2024 8.4 - 10.2 [facility] Potassium SerPl-sCnc 4.4 mmol/L 11/29/2024 3.5 - 5.1 [facility] Phosphate SerPl-mCnc 2.9 mg/dL 11/29/2024 2.5 - 4.5 [facility] Magnesium SerPl-mCnc 2.2 mg/dL 11/29/2024 1.7 - 2.8 [facility] PMV Bld Auto 8.3 FL 11/29/2024 7.4 - 11.4 [facility] RBC # Bld Auto 3.28 M/mcL Below low normal 11/29/2024 4.7 - 6 [facility] Hct VFr Bld Auto 28.5 % Below low normal 11/29/2024 40 - 54 [facility] Hgb Bld-mCnc 9.6 g/dL Below low normal 11/29/2024 13.5 - 18 [facility] WBC # Bld Auto 18.0 K/mcL Above high normal 11/29/2024 4 - 1 0.5 [facility] RBC Auto 86.7 FL 11/29/2024 78 - 100 [facility] RDW RBC Auto 15.1 % 11/29/2024 12.1 - 17.7 [facility] MCH RBC Qn Auto 29.1 pcg 11/29/2024 25 - 33 [facility] MCHC RBC Auto-EntMCnc 33.6 g/dL 11/29/2024 32 - 36 [facility] Platelet # Bld Auto 84.0 K/mcL Below low normal 11/29/2024 150 - 450 [facility] Ca-I Bld-mCnc 1.07 mg/dL Below low normal 11/29/2024 1.19 - 1.35 [facility] Glucose Bld-mCnc 162.0 mg/dL 11/29/2024 70 - 199 [facility] Glucose Bld-mCnc 163.0 mg/dL 11/29/2024 70 - 199 [facility] Glucose Bld-mCnc 131.0 mg/dL 11/29/2024 70 - 199 [facility] Glucose Bld-mCnc 173.0 mg/dL 11/29/2024 70 - 199 [facility] Glucose Bld-mCnc 191.0 mg/dL 11/29/2024 70 - 199 [facility] Glucose Bld-mCnc 209.0 mg/dL Above high normal 11/28/2024 70 - 199 [facility] Glucose Bld-mCnc 244.0 mg/dL Above high normal 11/28/2024 70 - 199 [facility] Glucose Bld-mCnc 278.0 mg/dL Above high normal 11/28/2024 70 - 199 [facility] Glucose Bld-mCnc 266.0 mg/dL Above high normal 11/28/2024 70 - 199 [facility] Glucose Bld-mCnc 259.0 mg/dL Above high normal 11/28/2024 70 - 199 [facility] Glucose Bld-mCnc 271.0 mg/dL Above high normal 11/28/2024 70 - 199 [facility] Glucose Bld-mCnc 212.0 mg/dL Above high normal 11/28/2024 70 - 199 [facility] Glucose Bld-mCnc 116.0 mg/dL 11/28/2024 70 - 199 [facility] Acute kidney injury risk NephroCheck 0.75 Above high normal 11/28/2024 - [facility] Squamous #/area UrnS HPF -2.8 mmol/L 11/28/2024 [facility] Cystine Cry #/area UrnS HPF 7.33 pH Below low normal 11/28/2024 7.35 - 7.45 [facility] Mucous Threads #/area UrnS HPF 21.8 mmol/L 11/28/2024 [facility] Mixed Cell Casts #/area UrnS HPF 44.0 mmHg 11/28/2024 [facility] pO2 BldMV 36.0 mmHg 11/28/2024 [facility] Phosphate SerPl-mCnc 3.5 mg/dL 11/28/2024 2.5 - 4.5 [facility] Magnesium SerPl-mCnc 2.2 mg/dL 11/28/2024 1.7 - 2.8 [facility] Sodium SerPl-sCnc 139.0 mmol/L 11/28/2024 135 - 14 5 [facility] Glucose SerPl-mCnc 147.0 mg/dL Above high normal 11/28/2024 70 - 99 [facility] Potassium SerPl-sCnc 4.3 mmol/L 11/28/2024 3.5 - 5.1 [facility] Anion Gap SerPl Calc-sCnc 7.0 11/28/2024 5 - 14 [facility] Chloride SerPl-sCnc 109.0 mmol/L Above high normal 11/28/2024 98 - 107 [facility] eGFRcr SerPlBld CKD-EPI 2020 49.0 mL/min/1.73m2 Below low normal 11/28/2024 - [facility] Creat SerPl-mCnc 1.6 mg/dL Above high normal 11/28/2024 0.7 - 1.3 [facility] Calcium SerPl-mCnc 8.0 mg/dL Below low normal 11/28/2024 8.4 - 10.2 [facility] BUN/Creat SerPl 13.1 11/28/2024 12 - 20 [facility] CO2 SerPl-sCnc 23.0 mmol/L Below low normal 11/28/2024 24 - 32 [facility] BUN SerPl-mCnc 21.0 mg/dL Above high normal 11/28/2024 9 - 2 0 [facility] RDW RBC Auto 14.6 % 11/28/2024 12.1 - 17.7 [facility] MCH RBC Qn Auto 29.1 pcg 11/28/2024 25 - 33 [facility] WBC # Bld Auto 16.7 K/mcL Above high normal 11/28/2024 4 - 1 0.5 [facility] MCHC RBC Auto-EntMCnc 33.7 g/dL 11/28/2024 32 - 36 [facility] PMV Bld Auto 8.4 FL 11/28/2024 7.4 - 11.4 [facility] RBC # Bld Auto 3.46 M/mcL Below low normal 11/28/2024 4.7 - 6 [facility] Hct VFr Bld Auto 29.9 % Below low normal 11/28/2024 40 - 54 [facility] RBC Auto 86.4 FL 11/28/2024 78 - 100 [facility] Platelet # Bld Auto 90.0 K/mcL Below low normal 11/28/2024 150 - 450 [facility] Hgb Bld-mCnc 10.1 g/dL Below low normal 11/28/2024 13.5 - 18 [facility] Ca-I Bld-mCnc 1.1 mg/dL Below low normal 11/28/2024 1.19 - 1 .35 [facility] Base excess BldA Calc-sCnc -3.3 mmol/L Below low normal 11/28/2024 0 - 2 [facility] pH BldA 7.38 pH 11/28/2024 7.35 - 7.45 [facility] pCO2 BldA 36.0 mmHg 11/28/2024 35 - 45 [facility] pO2 BldA 97.0 mmHg 11/28/2024 80 - 105 [facility] Ramón Test Pass 11/28/2024 - [facility] SaO2 % BldA 99.3 % Above high normal 11/28/2024 95 - 98 [facility] HCO3 BldA-sCnc 22.4 mmol/L 11/28/2024 22 - 26 [facility] Glucose Bld-mCnc 145.0 mg/dL 11/28/2024 70 - 199 [facility] Glucose Bld-mCnc 135.0 mg/dL 11/28/2024 70 - 199 [facility] Glucose Bld-mCnc 138.0 mg/dL 11/28/2024 70 - 199 [facility] Glucose Bld-mCnc 145.0 mg/dL 11/28/2024 70 - 199 [facility] Glucose Bld-mCnc 157.0 mg/dL 11/28/2024 70 - 199 [facility] Glucose Bld-mCnc 178.0 mg/dL 11/28/2024 70 - 199 [facility] Glucose Bld-mCnc 207.0 mg/dL Above high normal 11/27/2024 70 - 199 [facility] pCO2 BldA 39.6 mmHg 11/27/2024 35 - 45 [facility] SaO2 % BldA 95.0 % 11/27/2024 95 - 98 [facility] Noe index Bld+IhG-Rto 35.0 % 11/27/2024 - [facility] Specimen drawn from Patient ART 11/27/2024 [facility] Body temperature 99.6 C 11/27/2024 CT [facility] Base excess BldA Calc-sCnc -4.0 mmol/L Below low normal 11/27/2024 0 - 2 [facility] pO2 temp adj BldA 85.0 mmHg Critically high 11/27/2024 35 - 45 [facility] pO2 BldA 82.0 mmHg 11/27/2024 80 - 105 [facility] pCO2 temp adj BldA 40.6 mmHg 11/27/2024 35 - 45 [facility] pH BldA 7.34 Below low normal 11/27/2024 7.35 - 7.45 [facility] pH temp adj BldA 7.33 Below low normal 11/27/2024 7.35 - 7.45 [facility] HCO3 BldA-sCnc 21.3 mmol/L Below low normal 11/27/2024 22 - 26 [facility] Glucose Bld-mCnc 189.0 mg/dL 11/27/2024 70 - 199 [facility] pO2 BldA 91.0 mmHg 11/27/2024 80 - 105 [facility] SaO2 % BldA 96.0 % 11/27/2024 95 - 98 [facility] pCO2 BldA 43.7 mmHg 11/27/2024 35 - 45 [facility] pO2 temp adj BldA 92.0 mmHg Critically high 11/27/2024 35 - 45 [facility] pCO2 temp adj BldA 43.9 mmHg 11/27/2024 35 - 45 [facility] pH BldA 7.33 Below low normal 11/27/2024 7.35 - 7.45 [facility] HCO3 BldA-sCnc 23.0 mmol/L 11/27/2024 22 - 26 [facility] Specimen drawn from Patient ART 11/27/2024 [facility] Base excess BldA Calc-sCnc -3.0 mmol/L Below low normal 11/27/2024 0 - 2 [facility] Body temperature 98.8 C 11/27/2024 CT [facility] pH temp adj BldA 7.33 Below low normal 11/27/2024 7.35 - 7.45 [facility] Noe index Bld+IhG-Rto 40.0 % 11/27/2024 - [facility] Glucose Bld-mCnc 213.0 mg/dL Above high normal 11/27/2024 70 - 199 [facility] Potassium SerPl-sCnc 4.4 mmol/L 11/27/2024 3.5 - 5.1 [facility] INR PPP 1.2 Above high normal 11/27/2024 0.8 - 1.1 C [facility] PT Bld 13.8 sec Above high normal 11/27/2024 10.5 - 13.3 [facility] aPTT PPP 53.4 sec Above high normal 11/27/2024 25 - 37 C [facility] Hgb Bld-mCnc 11.8 g/dL Below low normal 11/27/2024 13.5 - 18 [facility] Hct VFr Bld Auto 34.7 % Below low normal 11/27/2024 40 - 54 [facility] Base excess BldA Calc-sCnc -2.0 mmol/L Below low normal 11/27/2024 0 - 2 [facility] pO2 temp adj BldA 106.0 mmHg Critically high 11/27/2024 35 - 45 [facility] SaO2 % BldA 98.0 % 11/27/2024 95 - 98 [facility] Noe index Bld+IhG-Rto 50.0 % 11/27/2024 - [facility] pCO2 BldA 35.6 mmHg 11/27/2024 35 - 45 [facility] HCO3 BldA-sCnc 22.6 mmol/L 11/27/2024 22 - 26 [facility] Body temperature 97.2 C 11/27/2024 CT [facility] Specimen drawn from Patient ART 11/27/2024 [facility] pCO2 temp adj BldA 34.4 mmHg Below low normal 11/27/2024 35 - 45 [facility] pO2 BldA 111.0 mmHg Above high normal 11/27/2024 80 - 105 [facility] pH BldA 7.41 11/27/2024 7.35 - 7.45 [facility] pH temp adj BldA 7.42 11/27/2024 7.35 - 7.45 [facility] Glucose Bld-mCnc 208.0 mg/dL Above high normal 11/27/2024 70 - 199 [facility] pO2 BldA 117.0 mmHg Above high normal 11/27/2024 80 - 105 [facility] HCO3 BldA-sCnc 21.0 mmol/L Below low normal 11/27/2024 22 - 26 [facility] Base excess BldA Calc-sCnc -4.0 mmol/L Below low normal 11/27/2024 0 - 2 [facility] Specimen drawn from Patient ART 11/27/2024 [facility] Body temperature 96.5 C 11/27/2024 CT _[facility] Noe index Bld+IhG-Rto 60.0 % 11/27/2024 - [facility] pO2 temp adj BldA 110.0 mmHg Critically high 11/27/2024 35 - 45 [facility] SaO2 % BldA 99.0 % Above high normal 11/27/2024 95 - 98 [facility] pH BldA 7.38 11/27/2024 7.35 - 7.45 [facility] pH temp adj BldA 7.4 11/27/2024 7.35 - 7.45 [facility] pCO2 temp adj BldA 33.6 mmHg Below low normal 11/27/2024 35 - 45 [facility] pCO2 BldA 35.3 mmHg 11/27/2024 35 - 45 [facility] N Glucose Bld-mCnc 190.0 mg/dL 11/27/2024 70 - 199 [facility] Specimen drawn from Patient ART 11/27/2024 [facility] SaO2 % BldA 94.0 % Below low normal 11/27/2024 95 - 98 [facility] pO2 temp adj BldA 69.0 mmHg Above high normal 11/27/2024 35 - 45 [facility] pCO2 BldA 43.2 mmHg 11/27/2024 35 - 45 [facility] N pH temp adj BldA 7.34 Below low normal 11/27/2024 7.35 - 7.45 [facility] Base excess BldA Calc-sCnc -4.0 mmol/L Below low normal 11/27/2024 0 - 2 [facility] Body temperature 96.4 C 11/27/2024 CT [facility] Noe index Bld+IhG-Rto 50.0 % 11/27/2024 - [facility] HCO3 BldA-sCnc 22.5 mmol/L 11/27/2024 22 - 26 [facility] pCO2 temp adj BldA 41.0 mmHg 11/27/2024 35 - 45 [facility] pO2 BldA 75.0 mmHg Below low normal 11/27/2024 80 - 105 [facility] pH BldA 7.32 Below low normal 11/27/2024 7.35 - 7.45 [facility] Glucose Bld-mCnc 155.0 mg/dL 11/27/2024 70 - 199 [facility] Noe index Bld+IhG-Rto 50.0 11/27/2024 [facility] pH BldA 7.34 pH Below low normal 11/27/2024 7.35 - 7.45 [facility] HCO3 BldA-sCnc 22.6 mmol/L 11/27/2024 22 - 26 [facility] pCO2 BldA 42.0 mmHg 11/27/2024 35 - 45 [facility] N Ramón Test Pass 11/27/2024 - [facility] SaO2 % BldA 99.7 % Above high normal 11/27/2024 95 - 98 [facility] Base excess BldA Calc-sCnc -3.0 mmol/L Below low normal 11/27/2024 0 - 2 [facility] pO2 BldA 95.0 mmHg 11/27/2024 80 - 105 [facility] N Hgb Bld-mCnc 12.5 g/dL Below low normal 11/27/2024 13.5 - 18 [facility] WBC # Bld Auto 19.3 K/mcL Above high normal 11/27/2024 4 - 1 0.5 [facility] RDW RBC Auto 14.8 % 11/27/2024 12.1 - 17.7 [facility] RBC # Bld Auto 4.29 M/mcL Below low normal 11/27/2024 4.7 - 6 [facility] RBC Auto 86.2 FL 11/27/2024 78 - 100 [facility] N Platelet # Bld Auto 92.0 K/mcL Below low normal 11/27/2024 150 - 450 [facility] Hct VFr Bld Auto 36.9 % Below low normal 11/27/2024 40 - 54 [facility] MCH RBC Qn Auto 29.0 pcg 11/27/2024 25 - 33 [facility] PMV Bld Auto 8.2 FL 11/27/2024 7.4 - 11.4 [facility] MCHC RBC Auto-EntMCnc 33.7 g/dL 11/27/2024 32 - 36 [facility] Chloride SerPl-sCnc 110.0 mmol/L Above high normal 11/27/2024 98 - 107 [facility] Sodium SerPl-sCnc 142.0 mmol/L 11/27/2024 135 - 14 5 [facility] Anion Gap SerPl Calc-sCnc 9.0 11/27/2024 5 - 14 [facility] Calcium SerPl-mCnc 8.6 mg/dL 11/27/2024 8.4 - 10.2 [facility] CO2 SerPl-sCnc 23.0 mmol/L Below low normal 11/27/2024 24 - 32 [facility] Glucose SerPl-mCnc 161.0 mg/dL Above high normal 11/27/2024 70 - 99 [facility] eGFRcr SerPlBld CKD-EPI 2020 57.0 mL/min/1.73m2 Below low normal 11/27/2024 - [facility] Creat SerPl-mCnc 1.4 mg/dL Above high normal 11/27/2024 0.7 - 1.3 [facility] BUN SerPl-mCnc 17.0 mg/dL 11/27/2024 9 - 20 [facility] Potassium SerPl-sCnc 3.5 mmol/L 11/27/2024 3.5 - 5.1 [facility] BUN/Creat SerPl 12.1 11/27/2024 12 - 20 [facility] Phosphate SerPl-mCnc 1.3 mg/dL Below low normal 11/27/2024 2.5 - 4.5 [facility] Potassium SerPl-sCnc 3.5 mmol/L 11/27/2024 3.5 - 5.1 [facility] INR PPP 1.2 Above high normal 11/27/2024 0.8 - 1.1 C [facility] PT Bld 13.9 sec Above high normal 11/27/2024 10.5 - 13.3 [facility] aPTT PPP 27.1 sec 11/27/2024 25 - 37 [facility] Hct VFr Bld Auto 36.9 % Below low normal 11/27/2024 40 - 54 [facility] Hgb Bld-mCnc 12.5 g/dL Below low normal 11/27/2024 13.5 - 18 [facility] Mucous Threads #/area UrnS HPF 23.0 mmol/L 11/27/2024 [facility] Squamous #/area UrnS HPF -1.8 mmol/L 11/27/2024 [facility] Mixed Cell Casts #/area UrnS HPF 48.0 mmHg 11/27/2024 [facility] Cystine Cry #/area UrnS HPF 7.32 pH Below low normal 11/27/2024 7.35 - 7.45 [facility] pO2 BldMV 46.0 mmHg 11/27/2024 [facility] Ca-I Bld-mCnc 1.22 mg/dL 11/27/2024 1.19 - 1.35 CT [facility] Hct VFr BldA Calc 31.0 % Below low normal 11/28/2024 40 - 54 [facility] pO2 BldA 165.0 mmHg Above high normal 11/28/2024 80 - 105 [facility] Noe index Bld+IhG-Rto 60.0 % 11/28/2024 - [facility] SaO2 % BldA 99.0 % Above high normal 11/28/2024 95 - 98 [facility] Sodium BldA-sCnc 141.0 mmol/L 11/28/2024 135 - 145 [facility] pH BldA 7.36 11/28/2024 7.35 - 7.45 [facility] pH temp adj BldA 7.36 11/28/2024 7.35 - 7.45 [facility] Hgb BldA-mCnc 10.5 g/dL Below low normal 11/28/2024 13.5 - 1 8 [facility] Body temperature 37.0 C 11/28/2024 CT [facility] HCO3 BldA-sCnc 21.7 mmol/L Below low normal 11/28/2024 22 - 26 [facility] Ca-I Bld-mCnc 1.55 mmol/L Above high normal 11/28/2024 1.19 - 1.35 [facility] Potassium BldA-sCnc 3.7 mmol/L 11/28/2024 3.5 - 5.1 [facility] pO2 temp adj BldA 165.0 mmHg Critically high 11/28/2024 35 - 45 [facility] pCO2 temp adj BldA 38.1 mmHg 11/28/2024 35 - 45 [facility] Base excess BldA Calc-sCnc -4.0 mmol/L Below low normal 11/28/2024 0 - 2 [facility] Glucose BldA-mCnc 218.0 mg/dL Above high normal 11/28/2024 7 0 - 199 [facility] pCO2 BldA 38.1 mmHg 11/28/2024 35 - 45 [facility] N pCO2 BldA 40.5 mmHg 11/27/2024 35 - 45 [facility] N pO2 temp adj BldA 209.0 mmHg Critically high 11/27/2024 35 - 45 [facility] Noe index Bld+IhG-Rto 75.0 % 11/27/2024 - [facility] pCO2 temp adj BldA 40.5 mmHg 11/27/2024 35 - 45 [facility] SaO2 % BldA 100.0 % Above high normal 11/27/2024 95 - 98 [facility] Hct VFr BldA Calc 33.0 % Below low normal 11/27/2024 40 - 54 [facility] Glucose BldA-mCnc 227.0 mg/dL Above high normal 11/27/2024 7 0 - 199 [facility] Base excess BldA Calc-sCnc -2.0 mmol/L Below low normal 11/27/2024 0 - 2 [facility] Sodium BldA-sCnc 141.0 mmol/L 11/27/2024 135 - 145 [facility] pH temp adj BldA 7.37 11/27/2024 7.35 - 7.45 [facility] Ca-I Bld-mCnc 1.13 mmol/L Below low normal 11/27/2024 1.19 - 1.35 [facility] HCO3 BldA-sCnc 23.3 mmol/L 11/27/2024 22 - 26 CT _[facility] pO2 BldA 209.0 mmHg Above high normal 11/27/2024 80 - 105 [facility] Hgb BldA-mCnc 11.2 g/dL Below low normal 11/27/2024 13.5 - 1 8 [facility] Body temperature 37.0 C 11/27/2024 CT _[facility] pH BldA 7.37 11/27/2024 7.35 - 7.45 CT_[facility] Potassium BldA-sCnc 4.6 mmol/L 11/27/2024 3.5 - 5.1 [facility] Hgb BldA-mCnc 11.2 g/dL Below low normal 11/27/2024 13.5 - 1 8 [facility] pO2 BldA 317.0 mmHg Above high normal 11/27/2024 80 - 105 [facility] pH temp adj BldA 7.32 Below low normal 11/27/2024 7.35 - 7.45 [facility] pO2 temp adj BldA 317.0 mmHg Critically high 11/27/2024 35 - 45 [facility] Potassium BldA-sCnc 5.2 mmol/L Above high normal 11/27/2024 3.5 - 5.1 [facility] pCO2 temp adj BldA 45.5 mmHg Above high normal 11/27/2024 35 - 45 [facility] Hct VFr BldA Calc 33.0 % Below low normal 11/27/2024 40 - 54 [facility] Base excess BldA Calc-sCnc -3.0 mmol/L Below low normal 11/27/2024 0 - 2 [facility] pCO2 BldA 45.5 mmHg Above high normal 11/27/2024 35 - 45 C T_[facility] Ca-I Bld-mCnc 1.16 mmol/L Below low normal 11/27/2024 1.19 - 1.35 [facility] Noe index Bld+IhG-Rto 80.0 % 11/27/2024 - [facility] Glucose BldA-mCnc 230.0 mg/dL Above high normal 11/27/2024 7 0 - 199 [facility] Body temperature 37.0 C 11/27/2024 CT _[facility] pH BldA 7.32 Below low normal 11/27/2024 7.35 - 7.45 [facility] SaO2 % BldA 100.0 % Above high normal 11/27/2024 95 - 98 [facility] HCO3 BldA-sCnc 23.4 mmol/L 11/27/2024 22 - 26 CT [facility] Sodium BldA-sCnc 140.0 mmol/L 11/27/2024 135 - 145 [facility] Fibrinogen PPP-mCnc 210.0 mg/dL 11/27/2024 145 - 415 [facility] Platelet # Bld Auto 154.0 K/mcL 11/27/2024 150 - 450 [facility] PMV Bld Auto 11/27/2024 [facility] Citation Ref Lab Test The technical components of this case were performed at [address] [address] [place] # [id number] 11/29/2024 [facility] Noe index Bld+IhG-Rto 80.0 % 11/27/2024 - [facility] pCO2 temp adj BldA 48.1 mmHg Above high normal 11/27/2024 35 - 45 [facility] pO2 temp adj BldA 249.0 mmHg Critically high 11/27/2024 35 - 45 [facility] pH temp adj BldA 7.28 Below low normal 11/27/2024 7.35 - 7.45 [facility] Potassium BldA-sCnc 4.8 mmol/L 11/27/2024 3.5 - 5.1 [facility] Body temperature 37.0 C 11/27/2024 CT _[facility] Glucose BldA-mCnc 231.0 mg/dL Above high normal 11/27/2024 7 0 - 199 [facility] pH BldA 7.28 Below low normal 11/27/2024 7.35 - 7.45 [facility] Hct VFr BldA Calc 34.0 % Below low normal 11/27/2024 40 - 54 [facility] pCO2 BldA 48.1 mmHg Above high normal 11/27/2024 35 - 45 C [facility] HCO3 BldA-sCnc 22.7 mmol/L 11/27/2024 22 - 26 CT [facility] SaO2 % BldA 100.0 % Above high normal 11/27/2024 95 - 98 [facility] Base excess BldA Calc-sCnc -4.0 mmol/L Below low normal 11/27/2024 0 - 2 [facility] pO2 BldA 249.0 mmHg Above high normal 11/27/2024 80 - 105 [facility] Sodium BldA-sCnc 139.0 mmol/L 11/27/2024 135 - 145 [facility] Hgb BldA-mCnc 11.6 g/dL Below low normal 11/27/2024 13.5 - 1 8 [facility] Ca-I Bld-mCnc 1.17 mmol/L Below low normal 11/27/2024 1.19 - 1.35 [facility] pO2 temp adj BldA 81.0 mmHg Critically high 11/27/2024 35 - 45 [facility] pCO2 BldA 49.1 mmHg Above high normal 11/27/2024 35 - 45 C T_[facility] Noe index Bld+IhG-Rto 75.0 % 11/27/2024 - [facility] pO2 BldA 81.0 mmHg 11/27/2024 80 - 105 [facility] N Potassium BldA-sCnc 4.3 mmol/L 11/27/2024 3.5 - 5.1 [facility] pH BldA 7.27 Below low normal 11/27/2024 7.35 - 7.45 [facility] Hct VFr BldA Calc 33.0 % Below low normal 11/27/2024 40 - 54 [facility] Ca-I Bld-mCnc 1.16 mmol/L Below low normal 11/27/2024 1.19 - 1.35 [facility] SaO2 % BldA 94.0 % Below low normal 11/27/2024 95 - 98 [facility] Hgb BldA-mCnc 11.2 g/dL Below low normal 11/27/2024 13.5 - 1 8 [facility] pCO2 temp adj BldA 49.1 mmHg Above high normal 11/27/2024 35 - 45 [facility] Sodium BldA-sCnc 139.0 mmol/L 11/27/2024 135 - 145 [facility] HCO3 BldA-sCnc 22.7 mmol/L 11/27/2024 22 - 26 CT [facility] pH temp adj BldA 7.27 Below low normal 11/27/2024 7.35 - 7.45 [facility] Base excess BldA Calc-sCnc -4.0 mmol/L Below low normal 11/27/2024 0 - 2 [facility] Glucose BldA-mCnc 234.0 mg/dL Above high normal 11/27/2024 7 0 - 199 [facility] Body temperature 37.0 C 11/27/2024 CT _[facility] HCO3 BldA-sCnc 23.5 mmol/L 11/27/2024 22 - 26 CT [facility] Hct VFr BldA Calc 40.0 % 11/27/2024 40 - 54 C T_[facility] Noe index Bld+IhG-Rto 100.0 % 11/27/2024 - [facility] pH BldA 7.29 Below low normal 11/27/2024 7.35 - 7.45 [facility] Ca-I Bld-mCnc 1.25 mmol/L 11/27/2024 1.19 - 1.35 C T_[facility] pCO2 temp adj BldA 48.9 mmHg Above high normal 11/27/2024 35 - 45 [facility] SaO2 % BldA 100.0 % Above high normal 11/27/2024 95 - 98 [facility] pO2 temp adj BldA 245.0 mmHg Critically high 11/27/2024 35 - 45 [facility] pH temp adj BldA 7.29 Below low normal 11/27/2024 7.35 - 7.45 [facility] Body temperature 37.0 C 11/27/2024 CT _[facility] Hgb BldA-mCnc 13.6 g/dL 11/27/2024 13.5 - 18 [facility] Sodium BldA-sCnc 140.0 mmol/L 11/27/2024 135 - 145 [facility] Base excess BldA Calc-sCnc -3.0 mmol/L Below low normal 11/27/2024 0 - 2 [facility] Glucose BldA-mCnc 205.0 mg/dL Above high normal 11/27/2024 7 0 - 199 [facility] pCO2 BldA 48.9 mmHg Above high normal 11/27/2024 35 - 45 C [facility] Potassium BldA-sCnc 3.8 mmol/L 11/27/2024 3.5 - 5.1 [facility] pO2 BldA 245.0 mmHg Above high normal 11/27/2024 80 - 105 [facility] pCO2 temp adj BldA 34.8 mmHg Below low normal 11/27/2024 35 - 45 [facility] pH BldA 7.4 11/27/2024 7.35 - 7.45 [facility] Hct VFr BldA Calc 43.0 % 11/27/2024 40 - 54 C [facility] HCO3 BldA-sCnc 21.6 mmol/L Below low normal 11/27/2024 22 - 26 [facility] pH temp adj BldA 7.4 11/27/2024 7.35 - 7.45 [facility] Body temperature 37.0 C 11/27/2024 CT [facility] Hgb BldA-mCnc 14.6 g/dL 11/27/2024 13.5 - 18 [facility] Ca-I Bld-mCnc 1.21 mmol/L 11/27/2024 1.19 - 1.35 C T_[facility] Base excess BldA Calc-sCnc -3.0 mmol/L Below low normal 11/27/2024 0 - 2 [facility] pCO2 BldA 34.8 mmHg Below low normal 11/27/2024 35 - 45 CT [facility] Sodium BldA-sCnc 141.0 mmol/L 11/27/2024 135 - 145 [facility] pO2 BldA 381.0 mmHg Above high normal 11/27/2024 80 - 105 [facility] SaO2 % BldA 100.0 % Above high normal 11/27/2024 95 - 98 [facility] Noe index Bld+IhG-Rto 60.0 % 11/27/2024 - [facility] pO2 temp adj BldA 381.0 mmHg Critically high 11/27/2024 35 - 45 [facility] Glucose BldA-mCnc 180.0 mg/dL 11/27/2024 70 - 199 [facility] Potassium BldA-sCnc 3.6 mmol/L 11/27/2024 3.5 - 5.1 [facility] ABO Group Bld A 11/27/2024 [facility] Rh Bld Positive 11/27/2024 [facility] N Bld gp Ab Scn SerPl Ql Negative 11/27/2024 [facility] aPTT PPP 35.9 sec 11/27/2024 25 - 37 [facility] N INR PPP 1.0 11/27/2024 0.8 - 1.1 [facility] N PT Bld 11.1 sec 11/27/2024 10.5 - 13.3 [facility] Glucose Bld-mCnc 155.0 mg/dL 11/27/2024 70 - 199 [facility] BNP SerPl-mCnc 151.0 pcg/mL Above high normal 11/21/2024 0 - 100 [facility] Prealb SerPl-mCnc 23.0 mg/dL 11/21/2024 17 - 34 [facility] HbA1c MFr Bld 6.6 % Above high normal 11/21/2024 - 5.7 [facility] Est. average glucose Bld gHb Est-mCnc 143.0 mg/dL 11/21/2024 [facility] ABO Group Bld A 11/21/2024 [facility] Bld gp Ab Scn SerPl Ql Negative 11/21/2024 [facility] Rh Bld Positive 11/21/2024 [facility] N Nitrite Ur Ql Negative 11/21/2024 - [facility] Squamous #/area UrnS HPF 0.0 /HPF 11/21/2024 0 - 5 [facility] Glucose Ur Ql >500 Abnormal 11/21/2024 - [facility] pH Ur 5.0 pH Abnormal 11/21/2024 5 - 8 [facility] N WBC #/area UrnS HPF <1.0 /HPF 11/21/2024 0 - 5 [facility] RBC #/area UrnS HPF 1.0 /HPF 11/21/2024 0 - 3 [facility] Ketones Ur-mCnc Negative 11/21/2024 - CT_ [facility] Leukocyte esterase Ur Ql Strip Negative 11/21/2024 - [facility] Prot Ur Strip-mCnc 100.0 mg/dL Abnormal 11/21/2024 - [facility] Color Ur Yellow 11/21/2024 - [facility] N Hgb Ur Ql Small Abnormal 11/21/2024 - [facility] N Clarity Ur Clear 11/21/2024 - CT_[facility] AN Sp Gr Ur 1.025 11/21/2024 1.005 - 1.03 [facility] ALP SerPl-cCnc 63.0 unit/L 11/21/2024 34 - 104 CT [facility] AST SerPl-cCnc 20.0 unit/L 11/21/2024 5 - 40 CT [facility] Prot SerPl-mCnc 7.0 g/dL 11/21/2024 6.4 - 8.5 CT_ [facility] Bilirub Direct SerPl-mCnc 0.1 mg/dL 11/21/2024 0 - 0.2 [facility] Bilirub SerPl-mCnc 0.6 mg/dL 11/21/2024 0.3 - 1 [facility] ALT SerPl-cCnc 19.0 unit/L 11/21/2024 7 - 52 CT [facility] Albumin SerPl-mCnc 4.2 g/dL 11/21/2024 3.5 - 5 [facility] Albumin/Glob SerPl 1.5 11/21/2024 [facility] Globulin Ser Calc-mCnc 2.8 g/dL 11/21/2024 2.3 - 3.5 [facility] VLDLc SerPl Calc-mCnc 47.0 mg/dL 11/21/2024 [facility] HDLc SerPl-mCnc 34.0 mg/dL 11/21/2024 32 - 70 CT [facility] LDLc SerPl Calc-mCnc 93.0 mg/dL 11/21/2024 50 - 130 [facility] Cholest SerPl-mCnc 174.0 mg/dL 11/21/2024 0 - 200 [facility] Trigl SerPl-mCnc 235.0 mg/dL Above high normal 11/21/2024 - 150 [facility] Sodium SerPl-sCnc 143.0 mmol/L 11/21/2024 135 - 14 5 [facility] Potassium SerPl-sCnc 4.2 mmol/L 11/21/2024 3.5 - 5.1 [facility] Creat SerPl-mCnc 1.6 mg/dL Above high normal 11/21/2024 0.7 - 1.3 [facility] eGFRcr SerPlBld CKD-EPI 2020 49.0 mL/min/1.73m2 Below low normal 11/21/2024 - [facility] Chloride SerPl-sCnc 107.0 mmol/L 11/21/2024 98 - 107 [facility] Calcium SerPl-mCnc 9.2 mg/dL 11/21/2024 8.4 - 10.2 [facility] Anion Gap SerPl Calc-sCnc 11.0 11/21/2024 5 - 14 [facility] Glucose SerPl-mCnc 146.0 mg/dL 11/21/2024 70 - 199 [facility] BUN/Creat SerPl 13.1 11/21/2024 12 - 20 [facility]_ [facility] CO2 SerPl-sCnc 25.0 mmol/L 11/21/2024 24 - 32 CT [facility] BUN SerPl-mCnc 21.0 mg/dL Above high normal 11/21/2024 9 - 2 0 [facility] Magnesium SerPl-mCnc 2.3 mg/dL 11/21/2024 1.7 - 2.8 [facility] Monocytes # Bld Auto 0.8 K/mcL 11/21/2024 0 - 0.8 [facility] Lymphocytes # Bld Auto 1.3 K/mcL 11/21/2024 1 - 3.2 [facility] RDW RBC Auto 14.9 % 11/21/2024 12.1 - 17.7 CT_T [facility] MCHC RBC Auto-EntMCnc 33.7 g/dL 11/21/2024 32 - 36 [facility] Lymphocytes NFr Bld Auto 17.2 % Below low normal 11/21/2024 20 - 48 [facility] RBC # Bld Auto 5.22 M/mcL 11/21/2024 4.7 - 6 [facility]_ [facility] MCH RBC Qn Auto 29.1 pcg 11/21/2024 25 - 33 [facility]_ [facility] Neutrophils NFr Bld Auto 68.0 % 11/21/2024 44 - 74 [facility] PMV Bld Auto 8.8 FL 11/21/2024 7.4 - 11.4 [facility] Eosinophil NFr Bld Auto 3.2 % 11/21/2024 0 - 6 [facility] Basophils NFr Bld Auto 0.9 % 11/21/2024 0 - 2 [facility] Eosinophil # Bld Auto 0.2 K/mcL 11/21/2024 0 - 0.5 [facility] Neutrophils # Bld Auto 5.0 K/mcL 11/21/2024 1.8 - 7.8 [facility] RBC Auto 86.3 FL 11/21/2024 78 - 100 [facility] N Basophils # Bld Auto 0.1 K/mcL 11/21/2024 0 - 0.2 [facility] Hct VFr Bld Auto 45.1 % 11/21/2024 40 - 54 CT [facility] Platelet # Bld Auto 178.0 K/mcL 11/21/2024 150 - 450 [facility] WBC # Bld Auto 7.4 K/mcL 11/21/2024 4 - 10.5 CT_T [facility] Monocytes NFr Bld Auto 10.7 % 11/21/2024 2 - 12 [facility] Hgb Bld-mCnc 15.2 g/dL 11/21/2024 13.5 - 18 [facility] INR PPP 1.2 Above high normal 11/21/2024 0.8 - 1.1 C T_[facility] PT Bld 13.3 sec 11/21/2024 10.5 - 13.3 [facility] aPTT PPP 41.2 sec Above high normal 11/21/2024 25 - 37 C T_[facility] History of Medication Use Medication Directions Dispensed Refills Start Date End Date [facility] acetaminophen (TYLENOL) 325 mg tablet Take 1 tablet (325 mg total) by mouth every 6 (six) hours if needed for mild pain, headaches, moderate pain or fever - temperature GREATER than 38 C (100.4 F) for up to 10 days. 12/04/2024 active furosemide (Lasix) 20 mg tablet Take one tab twice daily for 7 days, then decrease to one tab once daily thereafter. 12/04/2024 active metoprolol tartrate (LOPRESSOR) 25 mg tablet Take 2 tablets (50 mg total) by mouth 2 (two) times a day. 12/04/2024 active oxyCODONE (ROXICODONE) 5 mg immediate release tablet Take 1 tablet (5 mg total) by mouth every 4 (four) hours if needed (pain). Max Daily Amount: 30 mg 12/04/2024 active potassium chloride (KLOR-CON M10) 10 mEq CR tablet Take one tab twice daily for 7 days, then decrease to one tab once daily thereafter. Tablet may be swallowed whole (do not crush/chew/suck on) OR broken in half and each half swallowed separately OR dissolved (whole tablet) in ~4 ounces of water (allow ~2 minutes to dissolve, stir well and administ 12/04/2024 active potassium chloride (KLOR-CON M20) CR tablet 40 mEq 40 mEq, oral, Once, On Wed12/03/24 at 0630, For 1 dose, Best given with food and plenty of water to minimize gastric irritation. Tablet may be swallowed whole (do not crush/chew/suck on) OR broken in half and each half swallowed separately OR dissolved (whole tablet) in ~4 ounces of water (allow ~2 12/03/2024 12/04/19 25 completed furosemide (LASIX) injection 20 mg 20 mg, intravenous, BID Diuretic, First dose (after last modification) on Wed12/04/24 at 0900 12/01/2024 12/05/19 active dextrose (D50W) 50% injection 12.5 g 12.5 g, intravenous, Every 15 min PRN, low blood sugar, moderate hypoglycemia *Patient is Unconscious, NPO, unable to swallow: BG 54 - 69 mg/dl*, Starting on Wed12/01/24 at 0649 12/01/2024 active dextrose (D50W) 50% injection 25 g 25 g, intravenous, Every 15 min PRN, low blood sugar, severe hypoglycemia *Patient is Unconscious, NPO, unable to swallow: BG LESS than 54 mg/dL*, Starting on Wed12/01/24 at 0649 12/01/2024 active dextrose 15 gram/60 mL oral solution 15 g 15 g, oral, Every 15 min PRN, low blood sugar, hypoglycemia *Patient conscious AND able to drink and swallow safely*, Starting on Wed12/01/24 at 0649 12/01/2024 active dextrose 15 gram/60 mL oral solution 30 g 30 g, oral, Every 15 min PRN, low blood sugar, hypoglycemia *Patient conscious AND able to drink and swallow safely*, Starting on Wed12/01/24 at 0649 12/01/2024 active Glucagon HCl (rDNA) injection 1 mg 1 mg, intramuscular, Once as needed, low blood sugar, severe hypoglycemia, Starting on Wed12/01/24 at 0649, For 1 dose 12/01/2024 active dilTIAZem (CARDIZEM) immediate release tablet 90 mg 90 mg, oral, Every 6 hours scheduled, First dose on Wed11/30/24 at 1045 11/30/2024 active melatonin tablet 3 mg 3 mg, oral, Nightly PRN, sleep, Starting on Wed11/30/24 at 1852 11/30/2024 active insulin lispro injection 3-18 Units 3-18 Units, subcutaneous, 3 times daily before meals, First dose on Wed11/30/24 at 0730, Indication: Total Daily Dose (TDD) GREATER than 80 units Correction Scale: High Dose Administer with meal and/or mealtime dose of insulin to correct high blood glucose If mealtime insulin dose not given (e.g. p 11/29/2024 12/01/19 active calcium gluconate 2 gram/100 mL IVPB (premix) 2 g 2 g, intravenous, at 100 mL/hr, Administer over 60 Minutes, Once, On Wed11/29/24 at 0700, For 1 dose 11/29/2024 11/30/19 completed oxyCODONE (ROXICODONE) immediate release tablet 5 mg [Order 1 Start] Name: oxyCODONE (ROXICODONE) immediate release tablet 5 mg Signed Summary: 5 mg, oral, Every 4 hours PRN, moderate pain, Starting on Wed11/30/24 at 1836 [Order 1 End] [Order 2 Start] Name: oxyCODONE (ROXICODONE) immediate release tablet 10 mg Signed Summary: 10 mg, oral, Every 4 hour 11/29/2024 11/30/19 active bisacodyL (DULCOLAX) suppository 10 mg 10 mg, rectal, Daily PRN, constipation, Starting on Wed11/29/24 at 0836 11/29/2024 active magnesium hydroxide (MILK OF MAGNESIA) 400 mg/5 mL suspension 30 mL 30 mL, oral, Nightly PRN, constipation, Starting on Wed11/29/24 at 0836, Follow dose with 8 oz of water. 11/29/2024 active metoprolol tartrate (LOPRESSOR) 5 mg/5 mL injection - ADS Override Pull Starting on Wed11/28/24 at 2256, For 1 dose, Created by cabinet override 11/29/2024 active metoprolol tartrate (LOPRESSOR) injection 5 mg 5 mg, intravenous, Once, On Wed11/29/24 at 0100, For 1 dose, For IV Push - Administer undiluted over 2 minutes 11/29/2024 active polyethylene glycol (MIRALAX) packet 17 g 17 g, oral, Daily, First dose on Wed11/29/24 at 0900 11/29/2024 active senna-docusate (PERICOLACE) 8.6-50 mg per tablet 1 tablet 1 tablet, oral, 2 times daily, First dose on Wed11/29/24 at 0900 11/29/2024 active metoprolol tartrate (LOPRESSOR) tablet 25 mg 25 mg, oral, Every 8 hours scheduled, First dose (after last modification) on Wed11/28/24 at 2215 11/28/2024 11/30/19 active albumin human 25 % infusion 25 g 25 g, intravenous, Once, On Wed11/28/24 at 0600, For 1 dose, Do not exceed 1 mL/minute in patients with normal plasma volume; 3 mL/minute in patients with hypoproteinemia., Indications: hypovolemic shock 11/28/2024 11/29/19 completed metoprolol tartrate (LOPRESSOR) tablet 12.5 mg 12.5 mg, oral, 2 times daily, First dose on Wed11/28/24 at 0900 11/28/2024 11/29/19 aborted aspirin 81 mg EC tablet Take 1 tablet (81 mg total) by mouth 1 (one) time each day. 11/28/2024 active pantoprazole (PROTONIX) EC tablet 40 mg 40 mg, oral, Every morning before breakfast, First dose on Wed11/28/24 at 0745, Do not crush, chew, or split. 11/28/2024 active acetaminophen (TYLENOL) tablet 650 mg 650 mg, oral, Every 6 hours PRN, mild pain, headaches, moderate pain, fever - temperature GREATER than 38 C (100.4 F), Starting on Wed12/01/24 at 0647 11/27/2024 12/02/19 active mupirocin (BACTROBAN) 2 % ointment 1 Application 1 Application, Each Nostril, Once, On Wed11/27/24 at 0600, For 1 dose, Preprocedure, Apply to both nostril. 11/27/2024 12/02/19 completed dilTIAZem (CARDIZEM) 125 mg in sodium chloride (non-PVC) 0.9 % 125 mL (1 mg/mL) infusion 5-15 mg/hr (5-15 mL/hr), intravenous, Continuous, Starting on Wed11/29/24 at 0100, GOAL EFFECT: Decrease HR to LESS than 110 BPM INITIAL RATE: 5 mg/hr USUAL DOSE RANGE: 5 - 15 mg/hr TITRATION DOSE: 2.5 mg/hr TITRATION FREQUENCY: 30 min CONTACT PRESCRIBER: -HR LESS than 60 BPM -HR GREATER 11/27/2024 12/01/19 aborted HYDROmorphone (DILAUDID) injection 0.25 mg 0.25 mg, intravenous, Every 2 hours PRN, moderate pain, Starting on Wed11/27/24 at 1214 11/27/2024 12/01/19 aborted HYDROmorphone (DILAUDID) injection 0.5 mg 0.5 mg, intravenous, Every 2 hours PRN, severe pain, Starting on Wed11/27/24 at 1214 11/27/2024 12/01/19 aborted ceFAZolin (ANCEF) 2 g in sterile water 20 mL IV syringe 2 g, intravenous, Administer over 3 Minutes, Every 8 hours, First dose on Wed11/27/24 at 1900, For 5 doses, Indication: Prophylaxis-Surgica l 11/27/2024 11/30/19 completed insulin regular in NS 100 unit/100 mL (1 unit/mL) IV 0.5-20 Units/hr (0.5-20 mL/hr), intravenous, Continuous, Starting on Wed11/27/24 at 1230, GOAL EFFECT: BG range 120-170 mg/dL (Cardiac Surgery) Titrate per insulin infusion calculator If enteral / parenteral nutrition is stopped abruptly, REDUCE the insulin infusion rate by 50%. 1. Check BG hourly 11/27/2024 11/30/19 aborted lactated Ringer's infusion 100 mL/hr, intravenous, Continuous, Starting on Wed11/27/24 at 1300 11/27/2024 11/30/19 aborted albumin human 5 % infusion 25 g 25 g, intravenous, Once, On Wed11/27/24 at 1415, For 1 dose, Do not exceed 4 mL/minute in patients with normal plasma volume; 10 mL/minute in patients with hypoproteinemia., Indications: hypovolemic shock 11/27/2024 11/29/19 completed aspirin suppository 300 mg 300 mg, rectal, Daily, First dose on Wed11/27/24 at 1230 11/27/2024 11/29/19 aborted chlorhexidine (PERIDEX) 0.12 % solution 15 mL 15 mL, Swish & Spit, Once, On Wed11/27/24 at 0600, For 1 dose, Preprocedure, Administer prior to intubation. 11/27/2024 11/29/19 completed pantoprazole (PROTONIX) injection 40 mg 40 mg, intravenous, Administer over 2 Minutes, Every 24 hours, First dose on Wed11/27/24 at 1230, Patient MUST have BOTH: -Strict NPO (unable to take oral or liquid PPI) -Contraindication to H2RA Pantroprazole - IV push: Reconstitute powder for injection with 10 mL NS; final concentration: 4 mg/mL., 11/27/2024 11/29/19 aborted sodium phosphates 60 mmol in sodium chloride 0.9 % 500 mL IVPB 60 mmol, intravenous, at 83.3 mL/hr, Administer over 6 Hours, Once, On Wed11/27/24 at 1330, For 1 dose 11/27/2024 11/29/19 completed albumin human 5 % infusion - ADS Override Pull Starting on Wed11/27/24 at 1352, For 1 dose, Created by cabinet override Do not exceed 4 mL/minute in patients with normal plasma volume; 10 mL/minute in patients with hypoproteinemia. 11/27/2024 11/28/19 completed magnesium sulfate 2 gram/50 mL (4 %) IVPB 2 g 2 g, intravenous, at 25 mL/hr, Administer over 2 Hours, Once, On Wed11/27/24 at 1230, For 1 dose 11/27/2024 11/28/19 completed potassium chloride 20 mEq/100 mL IVPB (premix) 20 mEq 20 mEq, intravenous, at 100 mL/hr, Administer over 1 Hours, Every 1 hour, First dose on Wed11/27/24 at 1330, For 2 doses, For central line administration only. 11/27/2024 11/28/19 completed ipratropium-albutero L (DUONEB) 0.5-2.5 mg/3 mL nebulizer solution 3 mL 3 mL, nebulization, 4 times daily, First dose (after last modification) on Wed11/27/24 at 1300 11/27/2024 active ondansetron (PF) (ZOFRAN) injection 4 mg 4 mg, intravenous, Every 6 hours PRN, nausea, vomiting, Starting on Wed11/27/24 at 1214 11/27/2024 active sodium chloride 0.9 % flush 10 mL [Order 1 Start] Name: Maintain IV access Signed Summary: Until discontinued, Starting on Wed11/27/24 at 1215, Until Specified [Order 1 End] [Order 2 Start] Name: Saline lock IV Signed Summary: Routine, Once, On Wed11/27/24 at 1215, For 1 occurrence, When tolerating PO fluids [Order 2 End] [Order 3 S 11/27/2024 active pantoprazole (PROTONIX) 40 mg EC tablet TAKE 1 TABLET BY MOUTH EVERY DAY 10/19/2024 active amLODIPine (NORVASC) 10 mg tablet Take 1 tablet (10 mg total) by mouth 1 (one) time each day. 10/18/2024 active insulin glargine (Lantus U-100 Insulin) 100 unit/mL injection Use twice daily: 100 units in AM and 80 units in PM 10/03/2024 active fluticasone propionate (FLONASE) 50 mcg/actuation nasal spray Administer 2 sprays into each nostril 1 (one) time each day. Shake gently. Before first use, prime pump. After use, clean tip and replace cap. 09/26/2024 active valsartan (DIOVAN) 320 mg tablet Take 1/2 tablet daily 09/20/2024 active ipratropium-albutero L (Combivent Respimat) 20-100 mcg/actuation inhaler Inhale 1 puff by mouth 4 (four) times a day. 08/31/2024 active apixaban (Eliquis) 5 mg tablet Take 1 tablet (5 mg total) by mouth 2 (two) times a day. 06/06/2024 active insulin aspart (NovoLOG FlexPen) 100 unit/mL (3 mL) injection pen Inject 5-12 Units under the skin 3 (three) times a day with meals. Dispense Pen, not vials. 05/29/2024 active nebivoloL (BYSTOLIC) 20 mg tablet Take 2 Tablets by mouth daily for 360 days. 01/25/2024 active nebivoloL (BYSTOLIC) 20 mg tablet Take 1 tablet (20 mg total) by mouth 1 (one) time each day. 01/25/2024 active simvastatin (ZOCOR) 20 mg tablet Take 1 Tablet by mouth at bedtime. 08/05/2023 active simvastatin (ZOCOR) 20 mg tablet Take 1 tablet (20 mg total) by mouth at bedtime. 08/05/2023 active flecainide (TAMBOCOR) 100 mg tablet Take 3 Tablets by mouth daily as needed (equaling 300 mg once in a 24-hour period) for recurrent A-fib). 07/26/2023 active silver sulfADIAZINE (SILVADENE, SSD) 1 % cream 02/08/2023 active cholecalciferol (VITAMIN D-3) 50 mcg (2,000 unit) tablet Take 1 Tablet by mouth daily. 12/17/2022 active cholecalciferol (VITAMIN D-3) 50 mcg (2,000 unit) tablet Take 1 tablet (2,000 Units total) by mouth 1 (one) time each day. 12/17/2022 active albuterol HFA (PROAIR HFA ; PROVENTIL HFA ; VENTOLIN HFA) 90 mcg/actuation inhaler Inhale 2 Puffs into the lungs every 4 hours as needed for Cough, Wheezing or Shortness of Breath. 02/25/2022 active albuterol HFA (PROAIR HFA ; PROVENTIL HFA ; VENTOLIN HFA) 90 mcg/actuation inhaler Inhale 2 puffs by mouth if needed. 02/25/2022 active ferrous sulfate 325 mg (65 mg elemental iron) tablet Take 1 tablet by mouth daily. 12/02/2020 active ferrous sulfate 325 mg (65 mg elemental iron) tablet Take 1 tablet (325 mg total) by mouth 1 (one) time each day. 12/02/2020 active blood sugar diagnostic (FreeStyle Lite Strips) test strip Test blood sugar 3 times daily 03/30/2014 active insulin glargine (LANTUS) 100 unit/mL injection Inject 80 Units under the skin at bedtime. 11/25/19 25 aborted insulin glargine (LANTUS) 100 unit/mL injection Inject 100 Units under the skin 1 (one) time each day in the morning. 11/25/19 25 aborted valsartan (DIOVAN) 160 mg tablet Take 1 tablet (160 mg total) by mouth 1 (one) time each day. 11/25/19 25 aborted empagliflozin (JARDIANCE) 25 mg tablet Sig - Route: Take 25 mg by mouth daily. active Allergies Allergen Reaction Severity Comment Documented Date Source Statu s [facility] ANAPHYLAXIS 11/21/2024 [facility] active ATORVASTATIN Joint pain 01/01/2016 [facility] ac tive Problems Problem Status Onset Date Problem Type Date of Resoluti on Source Hyperlipidemia active 2020-09-20 ProblemAct [facility]_ THSFRAN Type 2 diabetes mellitus with diabetic cataract ([facility] V24, [facility] V28) active 2011-06-18 ProblemAct [facility]_THSFRAN DM (diabetes mellitus), type 2 with peripheral vascular complications ([facility] V24, [facility] V28) active 2016-03-24 ProblemAct [facility]_THSFRAN Essential hypertension, benign active 2006-03-12 ProblemAct CT_THSFRAN Microalbuminuria active 2011-06-18 ProblemAct C T_THSFRAN LVH (left ventricular hypertrophy) active 2024-12-14 ProblemAct CT_THSFRAN Hypophosphatemia active 2024-11-27 ProblemAct C T_THSFRAN CTS (carpal tunnel syndrome) active 2016-03-24 ProblemAct CT_THSFRAN Substernal chest pain active 2024-10-19 ProblemAct CT_THSFRAN Tubular adenoma of colon active 2006-06-28 ProblemAct CT_THSFRAN Severe obesity (BMI 35.0-39.9) with comorbidity ([facility] V24, [facility] V28) active 2013-11-14 ProblemAct CT_THSFRAN DM (diabetes mellitus), type 2 with neurological complications ([facility] V24, [facility] V28) active 2011-06-18 ProblemAct CT_THSFRAN BPH (benign prostatic hyperplasia) active 2011-12-01 ProblemAct CT_THSFRAN Secondary hypercoagulable state ([facility] V24) active 2024-11-27 ProblemAct CT_THSFR AN Paroxysmal atrial fibrillation ([facility] V24, [facility] V28) active 2011-10-28 ProblemAct CT_THSFRAN S/P AVR (aortic valve replacement) active 2023-03-15 ProblemAct CT_THSFRAN Iron deficiency anemia active 2016-03-24 ProblemAct CT_THSFRAN CKD (chronic kidney disease) stage 3, GFR 30-59 ml/min ([facility] V24, [facility] V28) active 2016-03-24 ProblemAct CT_THSFRAN ED (erectile dysfunction) active 2016-03-24 ProblemAct CT_THSFRAN Esophageal reflux active 2006-03-12 ProblemAct CT_THSFRAN Obstructive sleep apnea active 2013-11-14 ProblemAct CT_THSFRAN Peripheral neuropathy active 2016-03-24 ProblemAct CT_THSFRAN DM (diabetes mellitus), type 2 with renal complications ([facility] V24, [facility] V28) active 2006-03-12 ProblemAct CT_THSFRAN Persistent atrial fibrillation ([facility] V24, [facility] V28) active 2024-11-14 ProblemAct CT_THSFRAN Acute on chronic diastolic (congestive) heart failure ([facility] V24, [facility] V28) active 2024-11-27 ProblemAct CTDODIE Immunizations Vaccine Date Source Lot Number Status Pneumococcal polysaccharide 23 valent (Pneumovax 23) 2yo and older 02/25/2022 CTDODIE [id number] com pleted Td Tetanus diptheria (Tdvax) 7yo and older 09/01/2017 CT_ EDUARD [id number] completed Influenza Quadravalent, MDCK , 0.5ml, with preservative (Flucelvax) 6mo and older 05/10/2017 CT_SUSAN [id number] completed Influenza trivalent, with pr eservative (Fluzone; Afluria) 6mo and older 07/02/2016 CTDODIE [id number] completed Influenza trivalent, with pr eservative (Fluzone; Afluria) 6mo and older 07/06/2014 CTLarrySTEPHANIE [id number] completed Influenza trivalent, with pr eservative (Fluzone; Afluria) 6mo and older 04/24/2013 CTLarrySTEPHANIE [id number] completed Influenza trivalent, with pr eservative (Fluzone; Afluria) 6mo and older 07/25/2012 CTLarrySTEPHANIE [id number] completed Influenza trivalent, with pr eservative (Fluzone; Afluria) 6mo and older 05/15/2011 CTLarrySTEPHANIE [id number] completed Influenza trivalent, with pr eservative (Fluzone; Afluria) 6mo and older 03/26/2010 [id number] completed H1N1 Inj Preservative Free 06/28/2009 CTLarrySTEPHANIE [id number] completed Influenza trivalent, with pr eservative (Fluzone; Afluria) 6mo and older 05/02/2009 CTLarrySTEPHANIE completed Influenza trivalent, with pr eservative (Fluzone; Afluria) 6mo and older 04/11/2007 CTLarrySTEPHANIE [id number] completed Encounters Encounter Type Encounter Reason Primary Diagnosis Location Date Ambulatory [facility] 12/21/2024 Inpatient [facility] 12/04/2024 Inpatient Nonrheumatic aortic (valve) stenosis Nonrheumatic aortic (valve) stenosis [facility] 11/27/2024 Ambulatory Encounter for other preprocedural examination Encounter for other preprocedural examination [facility] 11/21/2024 Ambulatory Nonrheumatic aortic (valve) stenosis Nonrheumatic aortic (valve) stenosis [facility] 11/13/2024 Care Team Organization Name Specialty Phone Email Start Date End Da te [facility] [place]/14[facility]2024 [facility] 11/13/2024
--- OUTSIDE RECORDS SUMMARY | 2025-04-23 14:17 | XMS_ITS | Encounter Summary ---
Author Organization [facility] Address [address] [place] [address] Care Team Providers Care Traffic Chief Name Role Phone Esvin Washington MD Primary Care Provider [phone] Reason for Visit * Reason Comments home health cert Encounter Details Date Type Department Care Team ([facility] Contact Info) Description 01/22/2025 Billing Patient Not Present Adult Medicine [address] [phone] Esvin Washington MD [address] [place] [phone] Social History Tobacco Use Types Packs/Day Years [...] for your loved ones. For example, child day care teacher or elderly care for an older [...] Description 05/10/2025 8:00 AM EDT Office Visit [facility] [address] [place] [address] Sophie Blanchard PA [address] [place], [place] 06/27/2025 1:30 PM EST Ancillary Procedure [facility] Cardiology [facility] [address] [facility] [address] [place] [address] 07/30/2025 9:30 AM EST Ancillary Procedure [facility] Cardiology [facility] [address] [facility] [address] [place] [address] 10/08/2025 11:15 AM EDT Office Visit Pulmonology - [place] [address] [phone] Do Matias MD [address] [address] 10/19/2025 2:30 PM EDT Office Visit [facility] - [address] [phone] Esvin Washington MD [address] [place] [address] 10/31/2025 4:00 PM EDT Office Visit Nephrology - [address] [phone] Matthew Cardenas MD [address] [address] documented as of this encounter Visit Diagnoses Not on filedocumented in this encounter Additional Health Concerns Assessment Noted Time PHQ-9 Depression Total Score: 13 025 7:21 PM EST documented as of this encounter Care Teams Traffic Chief Relationship Specialty Start Date End Date Esvin Washington MD [address] [place] [address] PCP - General Internal Medicine 06/12/24 documented as of this encounter
--- OUTSIDE RECORDS SUMMARY | 2025-04-23 14:17 | XMS_ITS | Encounter Summary ---
Author Organization [facility] [place] [address] Care Team Providers Care French Drawer Name Role Phone Esvin Washington MD Primary Care Provider [phone] Encounter Details Date Type Department Care Team (Late st Contact Info) Description 12/20/2024 Billing Patient Not Present Adult Medicine [facility] [address] [place] [phone] Demetrice Davis [place] Social History Tobacco Use Types Packs/Day [...] for your loved ones. For example, child neurologist or elderly care for an older adult? [...] 8:00 AM EDT Office Visit Endocrinology - [place] [address] [place] [address] Sophie Blanchard PA [address] [place] [address] 06/27/2025 1:30 PM EST Ancillary Procedure [facility] [address] [place] [address] 07/30/2025 9:30 AM EST Ancillary Procedure [facility] Cardiology [facility] [address] [place] [address] 10/08/2025 11:15 AM EDT Office Visit Pulmonology - [place] 175 [facility] [address] [place] [address] Do Matias MD 175 [facility] [address] [place] [address] 10/19/2025 2:30 PM EDT Office Visit Adult Medicine [facility] - [address] [phone] Esvin Washington MD [address] [place] [address] 10/31/2025 4:00 PM EDT Office Visit Nephrology - [address] [phone] Matthew Cardenas MD [address] [facility] [address] [place] [address] documented as of this encounter Visit Diagnoses Not on filedocumented in this encounter Additional Health Concerns Assessment Noted Time PHQ-9 Depression Total Score: 13 025 7:21 PM EST documented as of this encounter Care Teams French Drawer Relationship Specialty Start Date End Date Esvin Washington MD [address] [place] [address] PCP - General Internal Medicine 06/12/24 documented as of this encounter
== END 2025-04-23 12:36 | disposition home or self-care (01) ==
LOC: HO.HSM 11:43
PROVIDERS: PCP Internal Medicine; Visit Provider Psychiatry & Neurology Neurology
DX: E11.42 Type 2 diabetes mellitus with diabetic polyneuropathy (principal); I67.89 Other cerebrovascular disease; R25.1 Tremor, unspecified
CPT/HCPCS: 99214

== ENCOUNTER 2025-07-02 15:01 | Outpatient (AMB) | payer OTHER, SELFPAY ==
--- OUTSIDE RECORDS SUMMARY | 2025-06-27 13:30 | XMS_ITS | Encounter Summary ---
Author Organization [facility] Address [address] [place] [address] Care Team Providers Care Gas Meter Reader Name Role Phone Esvin Washington MD Primary Care Provider [phone] Reason for Visit * Imaging (Routine) - Closed Specialty Diagnoses / Procedures Referred By Contac t Referred To Contact Cardiology Diagnoses S/P AVR (aortic valve replacement) Procedures Transthoracic echocardiogram (TTE) complete with PRN contrast, bubble, strain, and 3D order panel OH TTE W 2D IMAGE COMPLETE W DOPPLER ECHO & COLOR FLOW DOPPLER ECHO OH JUAN DIEGO 2D COMPLETE W/CONTRAST OR W & WO CONTRAST WITH DOPPLER Kayleen Kay NP [address] [place] [address] Dr Guo [address] [place] [phone] Phone: tel: fax: [facility] Referral ID Status Reason Start Date Expiration Date Visits Re quested Visits Authorized [id number] Closed 03/30/2025 03/30/2026 1 1 Encounter Details Date Type Department Care Team (Latest Contact Info) Description 06/27/2025 1:30 PM EST Ancillary Procedure [facility] [address] [place] [address] S/P AVR (aortic valve replacement) Social History Tobacco Use Types Packs/Day Years [...] care for your loved ones. For example, school childcare attendant or elderly care for an older adult? [...] PM EDT documented as of this encounter Last Filed Vital Signs Vital Sign Reading Time Taken Comments Blood Pressure 156/88 06/27/2025 1:28 PM EST Pulse - - Temperature - - Respiratory Rate - - Oxygen Saturation - - Inhaled Oxygen Concentration - - Weight 107 kg (236 lb) 06/27/2025 1:28 PM EST Height 177.8 cm (5' 10 ) 06/27/2025 1:28 PM EST Body Mass Index 33.86 06/27/2025 1:28 PM EST documented in this encounter Plan of Treatment Upcoming Encounters Date Type Department Care Team (Late st Contact Info) Description 07/30/2025 9:30 AM EST Ancillary Procedure [facility] - [facility] [address] [facility] [address] [place] [address] 08/13/2025 8:30 AM EST Office Visit Endocrinology - [address] [phone] Sophie Blanchard PA [address] [place] [address] 10/08/2025 11:15 AM EDT Office Visit Pulmonology - [place] 175 [facility] [address] [place] [address] Do Matias MD [address] [place] [address] 10/19/2025 2:30 PM EDT Office Visit [facility] - [address] [phone] Esvin Washington MD [address] [place] [address] 10/31/2025 4:00 PM EDT Office Visit [facility] [address] [place] [address] Matthew Cardenas MD [address] [place] [address] documented as of this encounter Procedures Procedure Name Priority Date/Time Associated Diagnosis Comments TRANSTHORACIC ECHOCARDIOGRAM (TTE) COMPLETE W/ CONTRAST Routine 06/27/2025 2:12 PM EST S/P AVR (aortic valve replacement) documented in this encounter Results * (ABNORMAL) TRANSTHORACIC ECHOCARDIOGRAM (TTE) COMPLETE W/ CONTRAST (06/27/2025 2:12 PM EST) Left Atrium Minor [place] 7.5 cm CV PACS Left Atrium Major [place] 7.2 cm CV PACS LA Area Sys (A2C) 30 cm2 CV PACS LA Area Sys (A4C) 24 cm2 CV PACS LA Volume (BP) 83 mL CV PACS LA Size 5.2 cm CV PACS RA Area 16.6 cm2 CV PACS RA 2D Volume 45 mL CV PACS AV Mean Gradient 11 mmHg CV PACS Ao VTI 41.6 cm CV PACS AV Peak Gilbert 2.2 m/s CV PACS AV Peak Gradient 19 mmHg CV PACS AV Area Continuity Equation 2.1 cm2 CV PACS AV Area Peak Velocity 2.1 cm2 CV PACS Aortic Arch 3.0 cm CV PACS Ascending Aorta 3.7 cm CV PACS IVC Proximal 1.9 cm CV PACS IVSD 1.5(A) 0.6 - 1.0 cm CV PACS LVIDD 4.0(A) 4.2 - 5.8 cm CV PACS LVIDS 2.7 2.5 - 4.0 cm CV PACS LVOT Diameter 1.9 cm CV PACS LVOT Mean Gilbert 1.2 m/s CV PACS LVOT Mean Grad 6 mmHg CV PACS LVOT Mean Grad 6 mmHg CV PACS LVOT Peak VTI 30.2 cm CV PACS LVOT Peak Gilbert 1.6 m/s CV PACS LVOT Peak Gradient 10 mmHg CV PACS LVPWD 1.3(A) 0.6 - 1.0 cm CV PACS MV E' Tissue Velocity Lateral 9 cm/s CV PACS MV E' Tissue Velocity Septal 4 cm/s CV PACS LVOT Area 2.8 cm2 CV PACS LVOT Stroke Volume 86 mL CV PACS MV Deceleration Leake 3.6 m/s2 CV PACS E Wave Deceleration Time 244(A) 119 - 242 ms CV PACS MV PHT 70 ms CV PACS MV Peak A Gilbert 1.07 m/s CV PACS MV Peak E Gilbert 0.83 m/s CV PACS MV Mean Gradient 2 mmHg CV PACS MV Mean Gradient 2 mmHg CV PACS MV Mean Gradient 2 mmHg CV PACS MV Mean Gradient 2 mmHg CV PACS MV Mean Gradient 2 mmHg CV PACS MV VTI 31.3 cm CV PACS Mitral Valve Max Velocity 1.0 m/s CV PACS MV Peak Gradient 4 mmHg CV PACS MV Area PHT 3.1 cm2 CV PACS MV Area Continuity Equation 2.7 cm2 CV PACS PV Acceleration Time 120 ms CV PACS PV Acceleration Time 77 ms CV PACS PV Acceleration Time 99 ms CV PACS PV Mean Gradient 2 mmHg CV PACS PV VTI 18.7 cm CV PACS PV Peak Velocity 1.0 m/s CV PACS PV Peak Gradient 4 mmHg CV PACS RV Diastolic Basal Dimension 3.8 2.5 - 4.1 cm CV PACS RV S' 7 cm/s CV PACS TAPSE 15 mm CV PACS E/E' Ratio Septal 21 CV PACS E/E' Ratio Averaged 15 CV PACS LVOT Stroke Index 38 mL/m2 CV PACS LA Dimension Index 2D 2.3 cm/m2 CV PACS Relative Wall Thickness ratio 0.65 CV PACS LVOT:AV VTI Index 0.73 CV PACS FS 33 % CV PACS LV Mass 2D 209 g CV PACS Ascending Aorta Index 1.65 cm/m2 CV PACS MV VTI:LVOT VTI ratio 1.0 CV PACS LVOT flow 340 mL/s CV PACS RA 2D Volume Index 20 mL/m2 CV PACS JUAN ALBERTO Index (VTI) 0.92 cm2/m2 CV PACS JUAN ALBERTO Index (Pk Gilbert) 0.94 cm2/m2 CV PACS LVIDD Index 1.79 cm/m2 CV PACS LVIDS Index 1.21 cm/m2 CV PACS AV Velocity Ratio 0.73 CV PACS E/A Ratio 0.8 CV PACS E/E' Ratio Lateral 9 CV PACS LA Volume Index (BP) 37 mL/m2 CV PACS LV Mass Index 2D 93 g/m2 CV PACS BSA 2.3 m2 CV PACS Est. RA Pressure 3 mmHg CV PACS Inferior Vena Cava Diameter At Inspiration 3.0 cm CV PACS IVC Inspiration Index 1.34 cm/m2 CV PACS Anatomical Region Laterality Modality Ultrasound Narrative 06/29/2025 9:11 AM EST Left ventricle cavity size is normal. There is moderate concentric hypertrophy. Systolic function is normal with an ejection fraction of 65-70%. There are no regional LV wall motion abnormalities. There is abnormal septal motion consistent with post-operative status. Right ventricle cavity is normal. Right ventricular systolic function is mildly reduced. 25mm Inspiris Thompson pericardial bioprosthetic aortic valve is present. Prosthetic valve appears well-seated and appears to be functioning normally with a gradient within the expected range. Compared to the previous study from 10/20/2024, a bioprosthetic aortic valve is present. Left Ventricle Left ventricle cavity size is normal. There is moderate concentric hypertrophy. Systolic function is normal with an ejection fraction of 65-70%. There are no regional LV wall motion abnormalities. There is Grade I (mild) diastolic dysfunction. There is abnormal septal motion consistent with post-operative status. Right Ventricle Right ventricle cavity appears normal. Systolic function is mildly reduced. Left Atrium Left atrium cavity is mildly dilated. Right Atrium Right atrium cavity is normal. IVC/SVC Inferior vena cava structure is normal. Mitral Valve The leaflets are moderately thickened. There is moderate annular calcification. There is trace regurgitation. There is no evidence of mitral valve stenosis. Tricuspid Valve Tricuspid valve structure is normal. There is no significant regurgitation. Cannot assess RVSP. Aortic Valve The valve has been surgically replaced. There is a bioprosthetic valve.A #25 Inspiris Thompson pericardial bioprosthetic aortic valve. The prosthetic valve appears well-seated and appears to be functioning normally. There is no regurgitation. The gradient recorded across the prosthetic aortic valve is within the expected range. Pulmonic Valve Pulmonic valve structure is normal. There is trace pulmonic valve regurgitation. There is no evidence of pulmonic valve stenosis. Ascending Aorta The aorta appears normal in size. Pericardium Pericardium appears normal. There is no pericardial effusion. Study Details Overall the study quality was adequate. Cardiac history: prosthetic valve. Definity contrast was given to enhance imaging. Kayleen Kay NP CV ECHO PROCEDURES Final Result documented in this encounter Visit Diagnoses Diagnosis S/P AVR (aortic valve replacement) Heart valve replaced by other means documented in this encounter Administered Medications Inactive Administered Medications - up to 3 most recent administrations Medication Order MAR Action Action Date Dose Rate Site perflutren lipid microsphere (DEFINITY) 1.3 mL in sodium chloride 0.9% 8.7 mL injection 10 mL, intravenous, Administer over 10 Minutes, Once in imaging, Starting on Wed06/27/25 at 1413, For 1 dose Given 06/27/2025 2:13 PM EST 3 mL documented in this encounter Orders Medications Ordered That Teddy ht Not Have Been Administered Count Last Ordered Date First Ordered Date perflutren lipid microsphere (DEFINITY) 1.3 mL in sodium chloride 0.9% 8.7 mL injection 1 06/27/2025 documented in this encounter Additional Health Concerns Assessment Noted Time PHQ-9 Depression Total Score: 13 025 7:21 PM EST documented as of this encounter Care Teams Gas Meter Reader Relationship Specialty Start Date End Date Esvin Washington MD [address] [place] [phone] PCP - General Internal Medicine 06/12/24 documented as of this encounter
--- NOTE | 2025-07-02 15:37 | MHC.OFFVIS ---
Intake Visit Reasons: 2m Allergies atorvastatin (From LIPITOR) Adverse Reaction (Unknown, Unverified 03/31/24 09:34) MUSCLE ACHES HPI Comments Details: 64 years old man with diabetes, atrial fibrillation, diabetic neuropathy, and mild right hand resting tremor. He is presenting for a follow-up visit for Parkinson's disease. He was prescribed carbidopa-levodopa last year but delayed starting the medication. He is currently taking two pills per day and reports that the medication helps his tremor. He also notes an improvement in his chronic constipation since beginning the treatment. His condition is considered a mild case. [facility] Medical History (Updated 04/23/25 @ 12:33 by Cee Trujillo MD) Diabetic neuropathy Cerebral microvascular disease Carotid stenosis Social History Patient Tobacco Use Status: Former Tobacco user Review of Systems Narrative - Neurological: Reports tremor, which has improved with medication. - Gastrointestinal: Reports a history of constipation that has improved with current medication. Assessment & Plan Assessment & Plan (1) Cerebral microvascular disease: Comment: MRI brain WO at [facility] in Jun 2023: Mod WM lesions, one larger in right semiovale region and resulting in encephalomalacia, somewhat suggestive of demyelinating vs vascular disease NICS at [facility] in Jun 2023: WNL. Code(s): I67.89 - Other cerebrovascular disease Category: Medical (2) Diabetic neuropathy: Comment: EMG/NCS LEs at off in Apr 2024: Mod severe SM axonal PN Code(s): E11.40 - Type 2 diabetes mellitus with diabetic neuropathy, unspecified Category: Medical Qualifiers: Diabetes mellitus type: type 2 Diabetes mellitus complication detail: diabetic polyneuropathy Qualified Code(s): E11.42 - Type 2 diabetes mellitus with diabetic polyneuropathy (3) Parkinsonian tremor: Code(s): G20.C - Parkinsonism, unspecified Category: Medical Plan Impression: Mild right hand resting tremor better with carbidopa levodopa. He was happy with treatment and it was continued and I would see him back in a year time or earlier if needed. I informed the patient that his condition appears to be mild and stable, as his gait is normal and has not changed much. We discussed his carbidopa-levodopa regimen, and I advised that he can take two or three pills per day, including an extra dose before social occasions for symptom control. The patient acknowledged that the medication has been helping his tremor and stomach issues. We agreed to a follow-up in one year, with the option for an earlier appointment if any issues arise. Coding Level of Care Code Est Pt Level 3 (07118) Diagnoses Cerebral microvascular disease I67.89 Diabetic polyneuropathy associated with type 2 diabetes mellitus E11.42 Diabetes mellitus type: type 2 Diabetes mellitus complication detail: diabetic polyneuropathy Parkinsonian tremor G20.C
--- OUTSIDE RECORDS SUMMARY | 2025-07-02 21:35 | XMS_ITS | Clinical Summary ---
Author Organization [address] [facility] Address [address] [place] [address] Phone Care Team Providers Care Machine Overhauler Name Role Phone Esvin Washington MD Primary Care Provider [phone] Allergies Active Allergy Reactions Criticality Noted Date Comments Atorvastatin 01/01/2016 Joint pain Kiwi Anaphylaxis High 11/21/2024 Medications blood sugar diagnostic (FreeStyle Lite Strips) test strip Test blood sugar 3 times daily 4 Active pen needle, diabetic 31 gauge x 5/16 needle Use with novolog flex pen 3 Active cholecalciferol (VITAMIN D-3) 50 mcg (2,000 unit) tablet Take 1 tablet (2,000 Units total) by mouth 1 (one) time each day. 3 Active insulin syringes, disposable, 1 mL syringe Use twice daily with insulin 3 Active FREESTYLE LANCETS MISC Test blood sugar 3 times daily 3 Active UNABLE TO FIND Inhale into the lungs at bedtime. [employer]-pressure 8 4 Active ferrous sulfate 325 mg (65 mg elemental iron) tablet Take 1 tablet (325 mg total) by mouth 1 (one) time each day. 1 Active empagliflozin (JARDIANCE) 25 mg tablet Sig - Route: Take 25 mg by mouth daily. Active insulin glargine (Lantus U-100 Insulin) 100 unit/mL injection Use twice daily: 100 units in AM and 80 units in PM 5 Active pantoprazole (PROTONIX) 40 mg EC tablet TAKE 1 TABLET BY MOUTH EVERY DAY 90 tablet 1 Active aspirin 81 mg EC tablet Take 1 tablet (81 mg total) by mouth 1 (one) time each day. 5 12/06/19 Active oxyCODONE (ROXICODONE) 5 mg immediate release tablet Take 1 tablet (5 mg total) by mouth every 4 (four) hours if needed (pain). Max Daily Amount: 30 mg 45 tablet 5 Active Additional Information Patient not taking.Reported on 05/10/2025 metoprolol tartrate (LOPRESSOR) 25 mg tabletIndication s:Paroxysmal atrial fibrillation (CMS/HCC V24, CMS/HCC V28) Take 1 tablet (25 mg total) by mouth 2 (two) times a day. 180 tablet 3 Active FreeStyle Jazmyne 3 Plus Sensor device 1 EA. Active ipratropium-albu teroL (Combivent Respimat) 20-100 mcg/actuation inhalerIndicatio ns:Chronic obstructive pulmonary disease, unspecified COPD type (CMS/HCC V24, CMS/HCC V28) Inhale 1 puff by mouth 4 (four) times a day. 3 each 3 5 04/09/20 Active ipratropium-albu teroL (Combivent Respimat) 20-100 mcg/actuation inhalerIndicatio ns:Chronic obstructive pulmonary disease, unspecified COPD type (CMS/HCC V24, CMS/HCC V28) Inhale 1 puff by mouth 4 (four) times a day. 3 each 3 5 04/09/20 Active semaglutide (Ozempic) 0.25 mg or 0.5 mg(2 mg/1.5 mL) injection pen Inject 0.5 mg under the skin every 7 (seven) days. 5 Active insulin aspart (NovoLOG FlexPen) 100 unit/mL (3 mL) injection pen Use 12 units before lunch and dinner 15 mL 2 Active simvastatin (ZOCOR) 20 mg tablet Take 1 tablet (20 mg total) by mouth at bedtime. 90 tablet 1 5 Active apixaban (Eliquis) 5 mg tablet Take 1 tablet (5 mg total) by mouth 2 (two) times a day. 180 tablet 1 Active amLODIPine (NORVASC) 10 mg tablet Take 1 tablet (10 mg total) by mouth 1 (one) time each day. 90 tablet 1 Active Hospital, Clinic, or Other Facility Administered Medication Ordered Dose Route Frequency Start Date End Date Status perflutren lipid microsphere (DEFINITY) 1.3 mL in sodium chloride 0.9% 8.7 mL injection 10 mL IV Once in imaging 06/27/2025 06/27/2025 End ed Active Problems Problem Noted Date Diagnosed Date Achilles bursitis 04/09/2025 Aortic valve stenosis 04/09/2025 Chronic obstructive pulmonary disease 04/09/2025 Hypertension 04/09/2025 Nephrolithiasis 04/09/2025 Pain in limb 04/09/2025 Parkinson's disease 04/09/2025 Bursitis 04/09/2025 Primary pulmonary hypertension 04/09/2025 Type 2 diabetes mellitus without complications 0 04/09/2025 LVH (left ventricular hypertrophy) 12/14/2024 Assessment & Plan (03/30/2025 2:50 PM EDT): Moderate concentric LVH on echocardiogram from October 2024. PYP study is pending to r/o cardiac amyloidosis. Assessment & Plan (12/14/2024 2:40 PM EDT): Moderate concentric LVH on echocardiogram from October 2024. PYP study is pending to r/o cardiac amyloidosis. Secondary hypercoagulable state 11/27/2024 Acute on chronic diastolic (congestive) heart fa ilure 11/27/2024 Hypophosphatemia 11/27/2024 Substernal chest pain 10/19/2024 [...] aortic valve replacement with a #25 Inspiris Tijerina pericardial valve and left atrial appendage clip [...] aortic valve replacement with a #25 Inspiris [place] pericardial valve and left atrial appendage clip [...] with patient including but not limited to GA, stroke, , pain, bleeding, kidney dysfunction, and [...] kidney disease) stage 3, GFR 30-59 ml/min 03/24/2016 CTS (carpal tunnel syndrome) 03/24/2016 Overview (04/13/2024): CTR- bilateral. DM (diabetes mellitus), type 2 with peripheral vascular complications 03/24/2016 ED (erectile dysfunction) 03/24/2016 Iron deficiency anemia 03/24/2016 Peripheral neuropathy 03/24/2016 Overview (04/13/2024): LUE. Obstructive sleep apnea 11/14/2013 Overview (04/13/2024): CPAP. Severe obesity (BMI 35.0-39.9) with comorbidity 11/14/2013 BPH (benign prostatic hyperplasia) 12/01/2011 Paroxysmal atrial fibrillation 10/28/2011 Overview (04/13/2024): S/P ablation 09/03. Anticoagulated [...] on Eliquis for stroke risk reduction for [id number] score of 2. Continue to monitor for [...] on Eliquis for stroke risk reduction for [id number] score of 2. He has had some daytime fatigue since switching from Bystolic to metoprolol. I will reduce the metoprolol to 25 mg BID. Continue Eliquis as prescribed. Assessment & Plan (11/01/2024 2:23 PM EDT): Patient has a history of paroxysmal atrial fibrillation status pulmonary vein isolation in 2016 with redo radiofrequency ablation in February 2024. EKG from recent hospitalization 10/19/24 reviewed showing sinus rhythm with a rate of 53 bpm. He is on Eliquis for stroke risk reduction for [id number]-[id number] score of 2. No change to current medical therapy, continue on Eliquis and Bystolic as prescribed. DM (diabetes mellitus), type 2 with neurological complications 06/18/2011 Microalbuminuria 06/18/2011 Type 2 diabetes mellitus with diabetic cataract 06/18/2011 Overview (04/13/2024): Bilateral. Tubular adenoma of colon 06/28/2006 Overview (04/13/2024): Diminutive tubular adenomas x2 at colonoscopy 10/11/14. DM (diabetes mellitus), type 2 with renal compli cations 03/12/2006 Essential hypertension, benign 03/12/2006 Overview (04/13/2024): [...] Date Diagnosed Date Resolved Date Persistent atrial fibrillation 11/14/2024 03/30/2025 Encounters Date Type Department Care Team Description 06/29/2025 Results Follow-Up [facility] [address] [place] [address] Bushra Aguilera NP 06/27/2025 1:30 PM EST Ancillary Procedure [facility] [address] [facility] [address] [place] [address] S/P AVR (aortic valve replacement) 06/05/2025 11:40 AM EST Consult Gastroenterology - [address] [place] [phone] Jaren Perdomo MD DM (diabetes mellitus), type 2 with neurological complications ([facility] V24, CMS/[facility] V28) (Primary Dx); Parkinson's disease, unspecified whether dyskinesia present, unspecified whether manifestations fluctuate (CMS/HCC V24, CMS/HCC V28); Tubular adenoma of colon; Iron deficiency anemia, unspecified iron deficiency anemia type; S/P AVR (aortic valve replacement) 05/10/2025 10:30 AM EDT Office Visit Adult [address] [phone] Moises Mendez PA Change in bowel habits (Primary Dx); Gassiness; Belching; Essential hypertension, benign; Mixed hyperlipidemia; Paroxysmal atrial fibrillation ([facility] V24, CMS/[facility] V28) 05/10/2025 7:45 AM EDT Office Visit Endocrinology [address] [phone] Sophie Blanchard PA DM (diabetes mellitus), type 2 with neurological complications ([facility] V24, CMS/[facility] V28) (Primary Dx); Hyperlipidemia, unspecified hyperlipidemia type; Essential hypertension, benign; Stage 3b chronic kidney disease ([facility] V24, [facility] V28) 04/16/2025 Results Follow-Up Adult [address] [phone] Esvin Washington MD 04/13/2025 Telephone Adult Medicine [address] [phone] Esvin Washington MD 04/11/2025 Telephone [facility] [address] [facility] [address] [place] [phone] Kelley Loza RN 04/10/2025 3:30 PM EDT Office Visit Adult [address] [phone] Esvin Washington MD Type 2 diabetes mellitus with other kidney complication, unspecified whether halfway insulin use ([facility] V24, [facility] V28) (Primary Dx); Microalbuminuria; Essential hypertension, benign; Pure hypercholesterolemia; Encounter for long-term (current) use of medications; Other cardiomyopathy ([facility] V24, [facility] V28); Stage 3b chronic kidney disease ([facility] V24, [facility] V28); Paroxysmal atrial fibrillation ([facility] V24, [facility] V28); S/P AVR (aortic valve replacement); Nonrheumatic aortic valve stenosis; Primary hypertension; Parkinson's disease, unspecified whether dyskinesia present, unspecified whether manifestations fluctuate ([facility] V24, [facility] V28) 04/09/2025 3:30 PM EDT Office Visit Pulmonology - [address] [place] [address] Do Matias MD Mixed sleep apnea (Primary Dx); Chronic obstructive pulmonary disease, unspecified COPD type ([facility] V24, [facility] V28); Ex-smoker; Pleural effusion from Last 3 Months Immunizations Immunization Administration [...] Site/Laterality Comments CARPAL TUNNEL RELEASE 1990 PROCEDURE: NC NEUROPLASTY &/TRANSPOS MEDIAN NRV CARPAL TUNNE; COMMENT: bilateral CTR OTHER SURGICAL HISTORY 1999 PROCEDURE: NC REPAIR CHOANAL ATRESIA INTRANASAL; COMMENT: deviated septum repair COLONOSCOPY 2005 PROCEDURE: HISTORICAL COLONOSCOPY; COMMENT: negative COLONOSCOPY 10/11/2014 PROCEDURE: HISTORICAL COLONOSCOPY; COMMENT: small adenomas x 2; repeat in 5 yrs under propofol. done at [facility]. UPPER GASTROINTESTINAL ENDOSCOPY 10/11/2014 PROCEDURE: NC UPPER GI ENDOSCOPY PERFORMED; COMMENT: gastritis; biopsies [...] (diabetes mellitus), type 2 with renal complications ([facility] V24, [facility] V28) 03/12/2006 DX:DM (diabetes mellitus), t ype 2 with renal complications (HCC) CKD (chronic kidney disease) stage 3, GFR 30-59 ml/min ([facility] V24, [facility] V28) 03/24/2016 DX:CKD (chronic kidney disea se) stage 3, GFR 30-59 ml/min ([facility]) Paroxysmal atrial fibrillati on ([facility] V24, [facility] V28) 10/28/2011 DX:Paroxysmal atrial fibril lation (HCC) Obstructive sleep apnea 11/14/2013 DX:Obstr uctive sleep apnea; COMMENT: CPAP. Type 2 diabetes mellitus wit h diabetic cataract ([facility] V24, [facility] V28) 06/18/2011 DX:Type 2 diabetes [...] update COPD (chronic obstructive pu lmonary disease) ([facility] V24, [facility] V28) Heart murmur Heart valve [...] care for your loved ones. For example, early childhood associate teacher or elderly care for an [...] Orientation Straight 10/19/2024 6: 10 PM EDT Last Filed Vital Signs Vital Sign Reading Time Taken Comments Blood Pressure 156/88 06/27/2025 1:28 PM EST Pulse 84 06/05/2025 11:42 AM EST Temperature 36.4 C (97.6 F) 05/10/2025 10:34 AM EDT Respiratory Rate 16 04/10/2025 3:19 PM EDT Oxygen Saturation 96% 05/10/2025 10:34 AM EDT Inhaled Oxygen Concentration - - Weight 107 kg (236 lb) 06/27/2025 1:28 PM EST Height 177.8 cm (5' 10 ) 06/27/2025 1:28 PM EST Body Mass Index 33.86 06/27/2025 1:28 PM EST Plan of Treatment Upcoming Encounters Date Type Department Care Team (Late st Contact Info) Description 07/30/2025 9:30 AM EST Ancillary Procedure [facility] [address] [facility] [address] [place] [phone] 08/13/2025 8:30 AM EST Office Visit Endocrinology - [address] [phone] Sophie Blanchard PA [address] [place], [place] 10/08/2025 11:15 AM EDT Office Visit Pulmonology - [place] [address] [facility] 200 [place] [phone] Do Matias MD [address] [place] [phone] 10/19/2025 2:30 PM EDT Office Visit Adult Medicine South - [address] [phone] Esvin Washington MD [address] [place] [address] 10/31/2025 4:00 PM EDT Office Visit Nephrology - [address] [phone] Matthew [facility]ardenas MD [facility] [address] [place] [phone] Health Maintenance Due Date Last Done Comments Diabetes: Annual Foot Exam 1972 Zoster Vaccines (1 of 2) 1981 RSV Immunization Adult Patients (1 - Risk 50-74 years 1-dose series) 2012 COVID-19 Vaccine (2 - Sully risk series) 11/21/2020 10/24/2020 HIV Screening 06/27/2022 Pneumococcal Vaccine: 50+ Years (2 of 2 [...] this topic Medical Devices Implanted Type Area Leather Drier Device Identifier Shelf Expiration Date Model / Serial / Lot Valve Aortic Inspiris 25 25mm - [id number] - [id number] Implanted:Qt y: 1 on 11/27/2024 by Jeffery Givens MD at [facility] Heart Valve N/A: Heart [employer] 07/17/2029 [id number] / [id number] / NA Hemostat Absorb Surgicel 2x14in - Sna - [id number] Implanted:Qt y: 1 on 11/27/2024 by Jeffery Givens MD at [facility] Hemostasis N/A: Heart [employer] 01/15/2029 [id number] / NA / [id number] Plate X - Sna - [id number] Implanted:Qt y: 2 on 11/27/2024 by Jeffery Givens MD at [facility] Internal and External Fixation N/A: Heart SERA CRANIOMAXILLOFACIAL [id number] / NA / NA Plate Manubrium - Sna - [id number] Implanted:Qt y: 1 on 11/27/2024 by Jeffery Givens MD at [facility] Internal and External Fixation N/A: Heart SERA CRANIOMAXILLOFACIAL [id number] / NA / NA Screw Sd Locking 2.3x14mm - Sna - [id number] Implanted:Qt y: 22 on 11/27/2024 by Jeffery Givens MD at [facility] Internal and External Fixation N/A: Heart SERA CRANIOMAXILLOFACIAL [id number] / NA / NA Procedures Procedure Name Priority Date/Time Associated Diagnosis Comments TRANSTHORACIC ECHOCARDIOGRAM (TTE) COMPLETE W/ CONTRAST Routine 06/27/2025 2:12 PM EST S/P AVR (aortic valve replacement) NC IMMUNOFIXATION ELECTROPHORESIS SERUM Routine 04/10/2025 4:13 PM [...] mellitus with other kidney complication, unspecified whether technician terminal and repeater insulin use (CMS/HCC V24, CMS/HCC V28) COMPREHENSIVE METABOLIC PANEL Routine 04/10/2025 4:13 PM EDT Type 2 diabetes mellitus with other kidney complication, unspecified whether halfway insulin use (CMS/HCC V24, CMS/HCC V28) Essential [...] mellitus with other kidney complication, unspecified whether technician terminal and repeater insulin use (CMS/HCC V24, CMS/HCC V28) DIABETES EYE EXAM Routine 05/26/2023 COLONOSCOPY Routine 08/27/2020 HEPATITIS C SCREENING Routine 06/29/2018 from Last 3 Months or Most Recently Relevant to Health Maintenance Results * (ABNORMAL) TRANSTHORACIC ECHOCARDIOGRAM (TTE) COMPLETE W/ CONTRAST (06/27/2025 2:12 PM EST) Left Atrium Minor [place] 7.5 cm CV PACS Left Atrium Major [place] 7.2 cm CV PACS LA Area Sys [...] Volume 86 mL CV PACS MV Deceleration [place] 3.6 m/s2 CV PACS E Wave Deceleration [...] systolic function is mildly reduced. 25mm Inspiris Tijerina pericardial bioprosthetic aortic valve is present. Prosthetic [...] There is a bioprosthetic valve.A #25 Inspiris Tijer[place] pericardial bioprosthetic aortic valve. The prosthetic valve [...] Definity contrast was given to enhance imaging. us Bushra Aguilera NP CV ECHO PROCEDURES Final Result * Pathologist review immunofixation, urine random (04/10/2025 4:13 PM EDT) Pathologist Interpretation Reviewed by Brandy Sethi MD 04/12/2025 3:07 PM EDT [facility] Urine Urine specimen obtained by clean catch procedure / Unknown Non-blood Collection / Unknown 04/10/2025 4:13 PM EDT 04/10/2025 4:13 PM EDT us Bushra Aguilera NP LAB URINE ORDERABLES Final Resu lt Performing Organization Address City/[facility] [address]/ZIP Co de Phone Number [facility] [address] [place] [address], [place] [phone] * Pathologist Review Immunofixation (04/10/2025 4:13 PM EDT) Pathologist Interpretation Reviewed by Brandy Sethi MD 04/12/2025 3:05 PM EDT [facility] Blood Venous blood specimen / Unknown Venipuncture / Unknown 04/10/2025 4:13 PM EDT 04/10/2025 4:13 PM EDT us Bushra Aguilera NP LAB BLOOD ORDERABLES Final Resu lt Performing Organization Address [facility] [address]/ZIP Co de Phone Number [facility] [address] [place] [address], [place] [phone] * (ABNORMAL) Lipid panel with reflex to direct LDL (04/10/2025 4:13 PM EDT) Cholesterol 173 0 - 200 mg/dL LAB CHEMISTRY METHOD 04/10/2025 6:52 PM EDT [facility] Triglycerides 140 0 - 150 mg/dL LAB CHEMISTRY METHOD 04/10/2025 6:52 PM EDT [facility] HDL 41 >=40 mg/dL LAB CHEMISTRY METHOD 04/10/2025 6:52 PM EDT [facility] LDL Calculated 104(H) 0 - 100 mg/dL LAB CHEMISTRY METHOD 04/10/2025 6:52 PM EDT [facility] Comment:Estimated LDL Calcul ated using equation: Total cholesterol - HDL cholesterol - (Triglycerides/5) VLDL Cholesterol Froy 28 mg/dL LAB CHEMISTRY METHOD 04/10/2025 6:52 PM EDT [facility] Non HDL Chol. (LDL+VLDL) 132 <145 mg/dL LAB CHEMISTRY METHOD 04/10/2025 6:52 PM EDT [facility] Chol/HDL Ratio 4.2 0.0 - 4.4 LAB CHEMISTRY METHOD 04/10/2025 6:52 PM EDT [facility] Blood Venous blood specimen / Unknown Venipuncture / Unknown 04/10/2025 4:13 PM EDT 04/10/2025 4:13 PM EDT us Esvin Washington MD LAB BLOOD ORDERABLES Final Resu lt Performing Organization Address [facility] [address]/ZIP Co de Phone Number [facility] [address] [place] [address], [place] [phone] * Immunofixation, urine (04/10/2025 4:13 PM EDT) Immunofixation Electrophoresis, Urine No monoclonal immunoglobulins detected. LAB CHEMISTRY METHOD 04/12/2025 3:07 PM EDT [facility] Urine Urine specimen obtained by clean catch procedure / Unknown Non-blood Collection / Unknown 04/10/2025 4:13 PM EDT 04/10/2025 4:13 PM EDT Bushra Aguilera NP LAB URINE ORDERABLES Final Resu lt Performing Organization Address [facility] [address]/ZIP Co de Phone Number [facility] [address] [place] [address], [place] [phone] * (ABNORMAL) [place]-lambda free light chains, quantitative (04/10/2025 4:13 PM EDT) [place] Free Light Chain 3.41(H) 0.33 - 1.94 mg/dL 04/13/2025 12:22 PM EDT [facility] Lambda Free Light Chain 2.44 0.57 - 2.63 mg/dL 04/13/2025 12:22 PM EDT [facility] [place]/Lambda FLC Ratio 1.40 0.26 - 1.65 04/13/2025 12:22 PM EDT [facility] Comment: Test performed at [facility], [address] , [place] [address] Beverly Rose MD, PhD - Contract Accountant Blood Venous blood specimen / Unknown Venipuncture / Unknown 04/10/2025 4:13 PM EDT 04/10/2025 4:13 PM EDT us Bushra Aguilera NP LAB BLOOD ORDERABLES Final Resu lt [facility] [address] [place] [address] * (ABNORMAL) Microalbumin creatinine urine ratio (04/10/2025 4:13 PM EDT) [facility] Creatinine, Urine 106.0 mg/dL LAB CHEMISTRY METHOD 04/10/2025 7:42 PM EDT [facility] Microalb, Ur 774.0(H) 0.0 - 29.0 mg/L LAB CHEMISTRY METHOD 04/10/2025 7:42 PM EDT [facility] Comment:Results verified by repeat testing Microalb/Crea t Ratio 730(H) <30 mg/g creat LAB CHEMISTRY METHOD 04/10/2025 7:42 PM EDT [facility] Urine Urine specimen obtained by clean catch procedure / Unknown Non-blood Collection / Unknown 04/10/2025 4:13 PM EDT 04/10/2025 4:13 PM EDT us Esvin Washington MD LAB URINE ORDERABLES Final Resu lt Performing Organization Address City/[facility] [address]/ZIP Co de Phone Number [facility] [address] [place] [address], [place] [phone] * Immunofixation electrophoresis serum (04/10/2025 4:13 PM EDT) [facility] Immunofixation Result, Serum No monoclonal immunoglobulins detected. LAB CHEMISTRY METHOD 04/12/2025 3:05 PM EDT [facility] Blood Venous blood specimen / Unknown Venipuncture / Unknown 04/10/2025 4:13 PM EDT 04/10/2025 4:13 PM EDT Bushra Aguilera NP LAB BLOOD ORDERABLES Final Resu lt Performing Organization Address [facility] [address]/ZIP Co de Phone Number [facility] [address] [place] [address], [place] [phone] * Immunoglobulins IgG, IgA, IgM (04/10/2025 4:13 PM EDT) Pathologist [facility] Total IgG 1,390 549 - 1,584 mg/dL LAB CHEMISTRY METHOD 04/10/2025 6:52 PM EDT [facility] IgA 191 61 - 348 mg/dL LAB CHEMISTRY METHOD 04/10/2025 6:52 PM EDT [facility] IgM 55 23 - 259 mg/dL LAB CHEMISTRY METHOD 04/10/2025 6:52 PM EDT [facility] Blood Venous blood specimen / Unknown Venipuncture / Unknown 04/10/2025 4:13 PM EDT 04/10/2025 4:13 PM EDT Bushra Aguilera NP LAB BLOOD ORDERABLES Final Resu lt Performing Organization Address [facility] [address]/ZIP Co de Phone Number [facility] [address] [place] [address], [place] [phone] * (ABNORMAL) Hemoglobin A1c (04/10/2025 4:13 PM EDT) Pathologist [facility] Hemoglobin A1C 7.8(H) <6.5 % LAB CHEMISTRY METHOD 04/10/2025 9:21 PM EDT [facility] Mean Bld Glu Estim. 177 mg/dL LAB CHEMISTRY METHOD 04/10/2025 9:21 PM EDT [facility] Blood Venous blood specimen / Unknown Venipuncture / Unknown 04/10/2025 4:13 PM EDT 04/10/2025 4:13 PM EDT us Esvin Washington MD LAB BLOOD ORDERABLES Final Resu lt [facility] [address] [place] [address], * (ABNORMAL) Comprehensive metabolic panel (04/10/2025 4:13 PM EDT) [facility] Sodium 136 133 - 145 mmol/L LAB CHEMISTRY METHOD 04/10/2025 6:52 PM EDT [facility] Potassium 3.7 3.5 - 5.5 mmol/L LAB CHEMISTRY METHOD 04/10/2025 6:52 PM [facility] Chloride 107 96 - 110 mmol/L LAB CHEMISTRY METHOD 04/10/2025 6:52 PM EDT [facility] CO2 23 21 - 32 mmol/L LAB CHEMISTRY METHOD 04/10/2025 6:52 PM T [facility] Anion Gap 6 3 - 11 LAB CHEMISTRY METHOD 04/10/2025 6:52 PM T [facility] Glucose 97 70 - 100 mg/dL LAB CHEMISTRY METHOD 04/10/2025 6:52 PM [facility] BUN 19 5 - 25 mg/dL LAB CHEMISTRY METHOD 04/10/2025 6:52 PM EDT [facility] Creatinine 1.64(H) 0.70 - 1.30 mg/dL LAB CHEMISTRY METHOD 04/10/2025 6:52 PM EDT [facility] eGFR 47(L) >=60 mL/min/1. 73m2 LAB CHEMISTRY METHOD 04/10/2025 6:52 PM T [facility] Comment:Calculation based on the Chronic Kidney Disease Epidemiology Collaboration (CKD-EPI) equation refit without adjustment for race. BUN/Creatinine Ratio 11.6 LAB CHEMISTRY METHOD 04/10/2025 6:52 PM T [facility] Calcium 9.5 8.5 - 10.5 mg/dL LAB CHEMISTRY METHOD 04/10/2025 6:52 PM [facility] AST (SGOT) 26 10 - 42 unit/L LAB CHEMISTRY METHOD 04/10/2025 6:52 PM [facility] ALT (SGPT) 25 10 - 60 unit/L LAB CHEMISTRY METHOD 04/10/2025 6:52 PM [facility] Alkaline Phosphatase 98 42 - 121 unit/L LAB CHEMISTRY METHOD 04/10/2025 6:52 PM [facility] Total Protein 7.8 6.0 - 8.0 g/dL LAB CHEMISTRY METHOD 04/10/2025 6:52 PM [facility] Albumin 4.3 3.2 - 5.0 g/dL LAB CHEMISTRY METHOD 04/10/2025 6:52 PM [facility] Total Bilirubin 0.6 0.0 - 1.4 mg/dL LAB CHEMISTRY METHOD 04/10/2025 6:52 PM [facility] Blood Venous blood specimen / Unknown Venipuncture / Unknown 04/10/2025 4:13 PM EDT 04/10/2025 4:13 PM EDT us Esvin Washington MD LAB BLOOD ORDERABLES Final Resu lt [facility] [address] [place] [address], * Diabetes Eye Exam (05/26/2023) Pathologist [facility] Diabetes: Annual Retina Eye Exam Abstracted Historical Provider HEALTH MAINTENANCE Final Result * Colonoscopy (08/27/2020) Pathologist [facility] Colonoscopy No Interpretation , Abstracted Anatomical Region Laterality Modality Other Historical Provider HEALTH MAINTENANCE Final Result * Hepatitis C Screening (06/29/2018) Pathologist [facility] Hepatitis C Screening Abstracted [facility] Provider HEALTH MAINTENANCE Final Result from Last 3 Months or Most Recently Relevant to Health Maintenance Insurance [facility] Member Subscriber Plan / Payer (Ef fective 2023-Present) Name:SHERLEY SAHNI Relation to Subscriber:Self Name:Sherley Sahni Jr. Payer ID:[id number] Group ID:Not on file Type:Not on file Address: [facility] [id number] Advance Directives * Full Code - [...] currently active code status orders. Care Teams Machine Overhauler Relationship Specialty Start Date End Date Esvin Washington MD [address] [place] [phone] PCP - General Internal Medicine 06/12/24
--- OUTSIDE RECORDS SUMMARY | 2025-07-02 21:35 | XMS_ITS | Encounter Summary ---
Author Organization [facility] Address [address] [place] [address] Care Team Providers Care Tubing Supervisor Name Role Phone Esvin Washington MD Primary Care Provider [phone] Encounter Details Date Type Department Care Team ([facility] st Contact Info) Description 06/29/2025 Results Follow-Up [facility] - [facility] [address] [facility] 154 [place] [address] Kayleen Kay NP [address] [place] [address] [place] [phone] Social History Tobacco Use Types Packs/Day Years [...] for your loved ones. For example, child specialist or elderly care for an older adult? [...] Description 07/30/2025 9:30 AM EST Ancillary Procedure [facility] - [facility] [address] [facility] [address] [place] [address] 08/13/2025 8:30 AM EST Office Visit Endocrinology [address] [phone] Sophie Blanchard PA [address] [place] [address] 10/08/2025 11:15 AM EDT Office Visit Pulmonology - [place] [address] [place] [address] Do Matias MD [address] [place] [address] 10/19/2025 2:30 PM EDT Office Visit Adult Medicine South - [address] [phone] Esvin Washington MD [address] [place] [address] 10/31/2025 4:00 PM EDT Office Visit Nephrology - [address] [phone] Matthew [facility]ardenas [facility] 100 [facility] [address] [address] documented as of this encounter Visit Diagnoses Not on filedocumented in this encounter Additional Health Concerns Assessment Noted Time PHQ-9 Depression Total Score: 13 025 7:21 PM EST documented as of this encounter Care Teams Tubing Supervisor Relationship Specialty Start Date End Date Esvin Washington MD [address] [place] [address] PCP - General Internal Medicine 06/12/24 documented as of this encounter
--- OUTSIDE RECORDS SUMMARY | 2025-07-02 21:35 | XMS_ITS | Encounter Summary ---
Author Organization [facility] Address [address] [place] [address] Care Team Providers Care Animal Husbandry Worker Name Role Phone Esvin Washington MD Primary Care Provider [phone] Encounter Details Date Type Department Care Team (Late st Contact Info) Description 12/20/2024 Billing Patient Not Present Adult Medicine [facility] [address] [place] [phone] Demetrice Davis [place] Social History Tobacco Use [...] care for your loved ones. For example, vocational childcare teacher or elderly care for an older [...] [facility] - [facility] [address] [facility] [address] [place] [address] 08/13/2025 8:30 AM EST Office Visit Endocrinology [address] [phone] Sophie Blanchard PA [address] [place] [address] 10/08/2025 11:15 AM EDT Office Visit Pulmonology - [place] [address] [place] [address] Do Matias MD 230 [place] [address] 10/19/2025 2:30 PM EDT Office Visit Adult Medicine South - [address] [phone] Esvin Washington MD [address] [place] [address] 10/31/2025 4:00 PM EDT Office Visit Nephrology - [address] [phone] Matthew Cardenas MD [address] [facility] [address] [place] [address] documented as of this encounter Visit Diagnoses Not on filedocumented in this encounter Additional Health Concerns Assessment Noted Time PHQ-9 Depression Total Score: 13 025 7:21 PM EST documented as of this encounter Care Teams Animal Husbandry Worker Relationship Specialty Start Date End Date Esvin Washington MD [address] [place] [address] PCP - General Internal Medicine 06/12/24 documented as of this encounter
--- OUTSIDE RECORDS SUMMARY | 2025-07-02 21:35 | XMS_ITS | Encounter Summary ---
Author Organization [facility] Address [address] [place] [address] Care Team Providers Care Medium Cycle Salesperson Name Role Phone Esvin Washington MD Primary Care Provider [phone] Reason for Visit * Reason Comments home health Encounter Details Date Type Department Care Team ([facility] Contact Info) Description 12/21/2024 Billing Patient Not Present Adult Medicine [address] [phone] Esvin Washington MD [address] [place] [phone] Social History Tobacco Use Types Packs/Day Years [...] for your loved ones. For example, child watch attendant or elderly care for an older [...] Description 07/30/2025 9:30 AM EST Ancillary Procedure [facility] - [address] [place] [address] 08/13/2025 8:30 AM EST Office Visit Endocrinology - [address] [phone] Sophie Blanchard PA [address] [place] [address] 10/08/2025 11:15 AM EDT Office Visit Pulmonology - [place] [address] [place] [address] Do Matias MD 230 [place] [address] 10/19/2025 2:30 PM EDT Office Visit Adult Medicine South - [address] [phone] Esvin Washington MD [address] [place] [address] 10/31/2025 4:00 PM EDT Office Visit Nephrology - [address] [phone] Matthew Cardenas MD [address] [phone] documented as of this encounter Visit Diagnoses Not on filedocumented in this encounter Additional Health Concerns Assessment Noted Time PHQ-9 Depression Total Score: 13 025 7:21 PM EST documented as of this encounter Care Teams Medium Cycle Salesperson Relationship Specialty Start Date End Date Esvin Washington MD [address] [place] [address] PCP - General Internal Medicine 06/12/24 documented as of this encounter
--- OUTSIDE RECORDS SUMMARY | 2025-07-02 21:35 | XMS_ITS | Encounter Summary ---
Author Organization [facility] Address [address] [place] [address] Care Team Providers Care Quiller Machine Fixer Name Role Phone Esvin Washington MD Primary Care Provider [phone] Reason for Visit * Reason Comments home health cert Encounter Details Date Type Department Care Team ([facility] Contact Info) Description 01/22/2025 Billing Patient Not Present Adult Medicine [address] [phone] Esvin Washington MD [address] [place] [phone] Social History Tobacco Use Types Packs/Day Years [...] care for your loved ones. For example, children's attendant or elderly care for an older [...] Description 07/30/2025 9:30 AM EST Ancillary Procedure [facility] - [address] [place] [address] 08/13/2025 8:30 AM EST Office Visit Endocrinology - [address] [phone] Sophie Blanchard PA [address] [place] [address] 10/08/2025 11:15 AM EDT Office Visit Pulmonology - [place] [address] [place] [address] Do Matias MD 230 [place] [address] 10/19/2025 2:30 PM EDT Office Visit Adult Medicine South - [address] [phone] Esvin Washington MD [address] [place] [address] 10/31/2025 4:00 PM EDT Office Visit Nephrology - [address] [phone] Matthew [facility]as MD [facility] [address] [phone] documented as of this encounter Visit Diagnoses Not on filedocumented in this encounter Additional Health Concerns Assessment Noted Time PHQ-9 Depression Total Score: 13 025 7:21 PM EST documented as of this encounter Care Teams Quiller Machine Fixer Relationship Specialty Start Date End Date Esvin Washington MD [address] [place] [address] PCP - General Internal Medicine 06/12/24 documented as of this encounter
--- OUTSIDE RECORDS SUMMARY | 2025-07-02 21:35 | XMS_ITS | Patient Health Record ---
Author Organization [facility] claudine OsorioMingus Address [address] [facility] [address] [address] Care Team Providers Care Record Press Operator Name Role Phone Ranjit Washington MD Primary Care Provider Turner Tsang Unavailable [phone] Reason For Referral No Information Medications Medication [...] Status W/U Status Risk Notes Problem Bursitis (11862986) Bursitis (727.3) Active confirmed Problem Achilles bursitis (324735492) Achilles Tendonitis Bursitis (726.71) Active confirmed Problem Myositis (98671756) Myositis (729.1) Active confirmed Problem Pain in limb (60208798) Pain in Limb (729.5) Active confirmed Problem Plantar fasciitis (555138812) Plantar Fasciitis (728.71) Active confirmed Plan Of Treatment Pending Test Test Name Order Date X ray : Foot, right 2V 07/20/2012 Insurance Providers Payer Name Payer Address Payer Phone Subscriber Number Group Number Insured Name Patient Relationship to Insured Coverage Start Date Coverage End Date [facility] [address] [facility] [place] [address] [id number] Roman Chan Self - patient is the insured Medical (General) History Medical History History ICD Code broken bones CAD diabetes headaches/migraines heart disease high blood pressure reflux stomach ulcer Surgical History Surgery Date(Month/Year) carpal tunnel surgery both hands
== END 2025-07-02 15:44 | disposition home or self-care (01) ==
LOC: HO.HSM 15:01
PROVIDERS: PCP Internal Medicine; Visit Provider Psychiatry & Neurology Neurology
DX: I67.89 Other cerebrovascular disease (principal); E11.42 Type 2 diabetes mellitus with diabetic polyneuropathy; G20.C Parkinsonism, unspecified
CPT/HCPCS: 99213